=== PATIENT | female | born 1955 | race Two or more races ===

== ENCOUNTER 2017-05-16 16:54 | Emergency (ER) | payer OTHER, MEDICARE ==
[2017-05-16 17:08] VITALS: BP 143/90
[2017-05-16] MEDS ORDERED: predniSONE 20 MG Tab PO ONE (17:29)
[2017-05-16] MEDS ORDERED: Albuterol 0.083% 2.5 MG/3 ML Neb Soln NEB ONE (17:29)
--- NOTE | 2017-05-16 17:35 | EDM.PDOC ---
ED HPI GENERAL MEDICAL PROBLEM - General Chief Complaint: Respiratory Problem Stated Complaint: HX OF ASTHMA/COPD - SOB Time Seen by Provider: 05/16/17 17:02 Source of Information: Reports: Patient, RN Notes Reviewed - History of Present Illness INITIAL COMMENTS - FREE TEXT/NARRATIVE: 61-year-old female comes in with cough, wheezing, shortness of breath. He does have history of COPD. She states her cough is productive of greenish colored phlegm. She believes that she did have chills earlier this afternoon, possible low-grade fever. There has been some nasal and sinus congestion. She denies sore throat. She also feels bilateral ear pressure. - Related Data Allergies Allergy/AdvReac Type Severity Reaction Status Date / Time No Known Allergies Allergy Verified 05/16/17 17:06 Home Meds: Home Meds Albuterol Sulfate [Proair Hfa] 05/16/17 [History] Budesonide/Formoterol [Symbicort 160-4.5 MCG] 05/16/17 [History] Cholecalciferol (Vitamin D3) [Vitamin D] 05/16/17 [History] Doxycycline [Vibramycin] 100 mg PO Q12HR #20 cap 05/16/17 [Rx] Morphine Sulfate [Morphine Sulfate ER] 15 mg PO 05/16/17 [History] Omeprazole 05/16/17 [History] Valsartan [Diovan] 160 mg PO DAILY 05/16/17 [History] Vortioxetine Hydrobromide [Brintellix] 5 mg PO 05/16/17 [History] oxyCODONE HCl/Acetaminophen [oxyCODONE-Acetaminophen 5-325] 05/16/17 [History] Past Medical History HEENT History: Reports: Hard of Hearing Respiratory History: Reports: Asthma, COPD Psychiatric History: Reports: Depression - Past Surgical History HEENT Surgical History: Reports: Other (See Below) Other HEENT Surgeries/Procedures: glaucoma and cataract GI Surgical History: Reports: Cholecystectomy Female Surgical History: Reports: Section Other Musculoskeletal Surgeries/Procedures:: degenerative spine disease Social & Family History - Tobacco Use Smoking Status *Q: Former Smoker Used Tobacco, but Quit: Yes Month Tobacco Last Used: 10 - Recreational Drug Use Recreational Drug Use: No ED ROS GENERAL - Review of Systems Review Of Systems: See Below Constitutional: Reports: Fever, Chills (Possible low-grade) HEENT: Reports: Sinus Problem. Denies: Throat Pain Respiratory: Reports: Shortness of Breath, Wheezing (She does have some nasal and sinus congestion), Cough, Sputum Cardiovascular: Reports: Chest Pain (With coughing) GI/Abdominal: Denies: Abdominal Pain, Vomiting Musculoskeletal: Denies: Shoulder Pain, Arm Pain Skin: Reports: No Symptoms Neurological: Reports: No Symptoms ED EXAM, GENERAL - Physical Exam Exam: See Below General Appearance: Alert, No Apparent Distress Throat/Mouth: Normal Inspection, Normal Oropharynx Neck: Supple, Full Range of Motion, Other (No JVD). No: Lymphadenopathy (L), Lymphadenopathy (R) Respiratory/Chest: No Respiratory Distress, Lungs Clear, Wheezing. No: Rales ( Slight bilateral), Rhonchi Cardiovascular: Regular Rate, Rhythm GI/Abdominal: Soft, Non-Tender Extremities: No: Pedal Edema, Leg Pain Neurological: Alert, Oriented, No Motor/Sensory Deficits Skin Exam: Warm, Dry, Normal Color Course - Vital Signs Last Recorded V/S: Last Vital Signs Temp 96.3 F 05/16/17 17:00 Pulse 75 05/16/17 17:00 Resp 18 05/16/17 17:00 BP 143/90 H 05/16/17 17:00 Pulse Ox 99 05/16/17 17:00 - Orders/Labs/Meds Orders: Active Orders 24 hr Category Date Time Status RT Aerosol Therapy [RC] ASDIRECTED Care 05/16/17 17:29 Active Meds: Medications Discontinued Medications Generic Name Dose Route Start Last Admin Trade Name Freq PRN Reason Stop Dose Admin Albuterol 2.5 mg 05/16/17 17:29 05/16/17 17:38 Proventil Neb Soln NEB 05/16/17 17:30 2.5 mg ONETIME ONE Administration Prednisone 40 mg 05/16/17 17:29 Prednisone PO 05/16/17 17:30 ONETIME ONE Departure - Departure Time of Disposition: 17:30 Disposition: Home, Self-Care 01 Condition: Fair Clinical Impression: COPD exacerbation - Discharge Information Prescriptions: Doxycycline [Vibramycin] 100 mg PO Q12HR #20 cap Referrals: PCP,Not In Area [Primary Care Provider] - Forms: ED Department Discharge Additional Instructions: Doxycycline 100 mg twice daily as prescribed, prednisone as prescribed, continue with your inhalers as previously prescribed, follow-up clinic as needed if symptoms not resolving as expected, return to ED as needed. - My Orders Last 24 Hours: My Active Orders 05/16/17 17:29 RT Aerosol Therapy [RC] ASDIRECTED - Assessment/Plan Last 24 Hours: My Active Orders 05/16/17 17:29 RT Aerosol Therapy [RC] ASDIRECTED
== END 2017-05-16 18:14 | disposition home or self-care (01) ==
LOC: JD.ED 16:54
DX: J44.1 Chronic obstructive pulmonary disease with (acute) exacerbation (principal); F32.9 Major depressive disorder, single episode, unspecified; Z79.899 Other long term (current) drug therapy; Z90.49 Acquired absence of other specified parts of digestive tract; Z87.891 Personal history of nicotine dependence
CPT/HCPCS: 94664; 99284; A9270; 99283

== ENCOUNTER 2017-06-01 14:30 | Emergency (ER) | payer MEDICARE, OTHER ==
[2017-06-01 14:45] VITALS: BP 134/84
== END 2017-06-01 15:25 ==
LOC: JD.ED 14:30
DX: Z53.21 Procedure and treatment not carried out due to patient leaving prior to being seen by health care provider (principal)
CPT/HCPCS: 99283-25

== ENCOUNTER 2017-11-28 08:55 | Day surgery (SDC) | payer MEDICARE, OTHER ==
[~2017-11-28 08:55] MED LIST: Lactated Ringers 1,000 ML IV SCH; Lidocaine 1%/Sod Bicarbonate in NS 8.4% 1 ML Syringe IDERM PRN; Sodium Chloride 0.9% 10 ML Syringe FLUSH PRN
[2017-11-28] MEDS ORDERED: Midazolam 1 MG/ML 2 ML SDV ONE (09:27)
[2017-11-28] MEDS ORDERED: Propofol 200 MG/20 ML SDV ONE (09:27)
[2017-11-28] MEDS ORDERED: fentaNYL 100 MCG/2 ML SDV ONE (09:27)
--- NOTE | 2017-11-28 10:01 | PCM.PREANE ---
Preanesthetic Assessment - Anesthesia/Transfusion/Family Hx Anesthesia History: Prior Anesthesia Without Reaction Family History of Anesthesia Reaction: No Transfusion History: No Prior Transfusion(s) - Review of Systems General: Other (BMI 44, hx hep C) Pulmonary: Shortness of Breath, Other (COPD) Cardiovascular: Other (HTN) Gastrointestinal: Other (GERD with dysphagia) Neurological: Other (chronic back pain) Other: Reports: Depression - Physical Assessment NPO Status Date: 11/27/17 NPO Status Time: 23:00 Pulse: 67 O2 Sat by Pulse Oximetry: 96 Respiratory Rate: 16 Blood Pressure: 119/77 Temperature: 37 C Weight: 96 kg ASA Class: 2 Mental Status: Alert & Oriented x3 Airway Class: Mallampati = 2 Dentition: Reports: Normal Dentition Thyro-Mental Finger Breadths: 3 Mouth Opening Finger Breadths: 3 ROM/Head Extension: Full Lungs: Clear to Auscultation, Normal Respiratory Effort - Allergies Allergies/Adverse Reactions: Allergies Allergy/AdvReac Type Severity Reaction Status Date / Time latex Allergy Cannot Verified 11/27/17 14:27 Remember quetiapine [From Seroquel] Allergy Cannot Verified 11/27/17 14:27 Remember - Blood Blood Available: No Product(s) Available: None - Anesthesia Plan Pre-Op Medication Ordered: None - Acknowledgements Anesthesia Type Planned: MAC Pt an Appropriate Candidate for the Planned Anesthesia: Yes Alternatives and Risks of Anesthesia Discussed w Pt/Guardian: Yes Pt/Guardian Understands and Agrees with Anesthesia Plan: Yes PreAnesthesia Questionnaire HEENT History: Reports: Glaucoma, Hard of Hearing, Impaired Vision, Other (See Below) Other HEENT History: bilateral hearing aids, glasses Cardiovascular History: Reports: Hypertension Respiratory History: Reports: Asthma, COPD, Sleep Apnea Gastrointestinal History: Reports: GERD, Hepatitis, Hiatal Hernia, Other (See Below) Other Gastrointestinal History: dysphagia, hepatitis C positive Genitourinary History: Reports: None [employer] History: Reports: None Musculoskeletal History: Reports: Back Pain, Chronic Neurological History: Reports: CVA Psychiatric History: Reports: Depression Endocrine/Metabolic History: Reports: Obesity/BMI 30+ Hematologic History: Reports: None Immunologic History: Reports: None Oncologic (Cancer) History: Reports: None Dermatologic History: Reports: None - Past Surgical History Head Surgeries/Procedures: Reports: None HEENT Surgical History: Reports: Tonsillectomy Cardiovascular Surgical History: Reports: None Respiratory Surgical History: Reports: None GI Surgical History: Reports: Cholecystectomy, EGD Female Surgical History: Reports: Section Male Surgical History: Reports: None Endocrine Surgical History: Reports: None Neurological Surgical History: Reports: None Musculoskeletal Surgical History: Reports: None Oncologic Surgical History: Reports: None Dermatological Surgical History: Reports: None - SUBSTANCE USE Smoking Status *Q: Former Smoker Second Hand Smoke Exposure: No Recreational Drug Use History: No - HOME MEDS Home Medications: Home Meds Albuterol Sulfate [Proair Hfa] 2 puff INH Q4H PRN 05/16/17 [History] Budesonide/Formoterol [Symbicort 160-4.5 MCG] 2 puff INH BID 05/16/17 [History] Omeprazole 20 mg PO DAILY 05/16/17 [History] Valsartan [Diovan] 160 mg PO DAILY 05/16/17 [History] oxyCODONE HCl/Acetaminophen [oxyCODONE-Acetaminophen 5-325] 1 tab PO Q6H PRN [History] Albuterol [Proventil Neb Soln] 1 dose NEB Q6H 11/27/17 [History] Celecoxib [Celecoxib] 200 mg PO DAILY 11/27/17 [History] Hydrocort/Neomycin/Polymyxin B [Cortisporin Otic Soln] 1 drop EARBOTH QID PRN [History] Pregabalin [Lyrica] 150 mg PO DAILY 11/27/17 [History] Vortioxetine Hydrobromide [Trintellix] 5 mg PO DAILY 11/27/17 [History] - CURRENT (IN HOUSE) MEDS Current Meds: Current Medications Lactated Ringer's (Ringers, Lactated) 1,000 mls @ 125 mls/hr IV ASDIRECTED MACO Stop: 11/28/17 23:00 Lidocaine/Sodium Bicarbonate (Buffered Lidocaine 1% In Ns 8.4%) 0.25 ml IDERM ONETIME PRN PRN Reason: Prior to IV Start Stop: 11/28/17 18:00 Sodium Chloride (Saline Flush) 10 ml FLUSH ASDIRECTED PRN PRN Reason: Keep Vein Open Stop: 11/28/17 18:00 Discontinued Medications Fentanyl (Sublimaze) Confirm Administered Dose 100 mcg .ROUTE .STK-MED ONE Stop: 11/28/17 09:28 Midazolam HCl (Versed 1 Mg/Ml) Confirm Administered Dose 2 mg .ROUTE .STK-MED ONE Stop: 11/28/17 09:28 Propofol (Diprivan 20 Ml) Confirm Administered Dose 200 mg .ROUTE .STK-MED ONE Stop: 11/28/17 09:28
--- NOTE | 2017-11-28 10:40 | PCM48HPAN ---
Post Anesthesia Note - EVALUATION WITHIN 48HRS OF ANESTHETIC Vital Signs in Normal Range: Yes Patient Participated in Evaluation: Yes Respiratory Function Stable: Yes Airway Patent: Yes Cardiovascular Function Stable: Yes Hydration Status Stable: Yes Pain Control Satisfactory: Yes Nausea and Vomiting Control Satisfactory: Yes Mental Status Recovered: Yes Pulse Rate: 78 SaO2: 94 Resp Rate: 12 Temperature: 36.8 C Blood Pressure: 96/65
[2017-11-28 11:54] VITALS: BP 105/69
--- NOTE | 2017-11-29 07:37 | OR ---
DATE OF OPERATION: 11/28/2017 SURGEON: Ashish Burk MD OPERATION PERFORMED: EGD with biopsies. INDICATIONS: This 62-year-old patient has typical GERD symptoms. She has been on a PPI. She is also morbidly obese. In [place], she had treatment for H. pylori. She is considering a consultation for weight loss surgery if that is an option. Her past history is otherwise reviewed. EGD is indicated. DESCRIPTION OF PROCEDURE: The patient was brought to the GI Special Procedure Room. Procedure was done with MAC anesthesia. She was turned to the left lateral decubitus position. Appropriate time-out and consents have been obtained. Scope was advanced through the cricopharyngeus. I see no vocal cord abnormalities. The esophagus was normal. The Z-line was slightly irregular and this would be consistent with LA grade A erosive esophagitis. This was at 35 cm. I do not see a definite hiatal hernia. Scope was advanced into the stomach and on retroflexion, again a hiatal hernia was not appreciated. The cardia, fundus, body, and antrum were all visualized. She has some punctate erosions in the distal antrum. Biopsies were done here for H. pylori. Scope was advanced through the pylorus and down into the third portion of the duodenum, which was completely normal. The scope was then brought back. Pictures were taken and the scope was removed. PREOPERATIVE DIAGNOSIS: Morbid obesity and gastroesophageal reflux disease. ANESTHESIA: MAC. She tolerated the procedure well. RECOMMENDATIONS: We will see her back in 2 weeks to discuss findings. POSTOPERATIVE DIAGNOSIS: ESTIMATED BLOOD LOSS: MMODAL /[id number]
== END 2017-11-28 12:00 | disposition home or self-care (01) ==
LOC: JD.SDS 08:55
PROVIDERS: ATTEND Surgery
DX: K31.89 Other diseases of stomach and duodenum (principal); K25.9 Gastric ulcer, unspecified as acute or chronic, without hemorrhage or perforation; J44.9 Chronic obstructive pulmonary disease, unspecified; F33.42 Major depressive disorder, recurrent, in full remission; I10 Essential (primary) hypertension; Z88.8 Allergy status to other drugs, medicaments and biological substances; Z91.040 Latex allergy status; Z79.899 Other long term (current) drug therapy
CPT/HCPCS: 43239; J2250; J3010; J7120; 00731; 88305; J2704

== ENCOUNTER 2017-11-29 15:14 | Emergency (ER) | payer MEDICARE, OTHER ==
[2017-11-29 15:29] VITALS: BP 143/89
--- NOTE | 2017-11-29 15:47 | EDM.PDOC ---
ED HPI GENERAL MEDICAL PROBLEM - General Chief Complaint: Chest Pain Stated Complaint: CHEST TIGHTNESS Time Seen by Provider: 11/29/17 15:37 Source of Information: Reports: Patient History Limitations: Reports: No Limitations - History of Present Illness INITIAL COMMENTS - FREE TEXT/NARRATIVE: 62-year-old female presents to the ED with diffuse central chest pain and the pain rating up into her left shoulder. Of note patient had an EGD done yesterday morning for difficulties swallowing. This is her third EGD. She continues to feel a foreign body sensation in her throat and is clearing her throat excessively. She also has developed increased some pain particular a distal esophagus area with swallowing. She feels somewhat short of breath. No position is comfortable last night and she was forced to sit in an easy chair. Bowels move normally after the procedure yesterday. She's been taking mostly water and fluids orally without much pain. He can much in the way of solids. Pain is worse by deep breathing tonight pleuritic component to the hermann Seems to radiate up to her left shoulder and she's aware of pain between her shoulder blades in her back as well. Pain in the nape of her neck. 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 She has associated nausea but she has not vomited. She has a known hiatal hernia. She believes biopsies were obtained from the stomach yesterday not from the esophagus which she's not sure if they could've at the esophageal gastric junction. She denies any blood in her stool. Denies any abdominal pain. Note her procedure was carried out by Dr. Burk apparently the utility spray operator visiting I presume from [place]. Suture was carried out in our hospital however due to her obesity she was too high risk for clinic procedure. Onset: Sudden (Patient has had central chest pain since her biopsy and EGD were completed yesterday around noon.) Onset Date: 11/29/17 Duration: Hour(s): Location: Reports: Chest Quality: Reports: Ache, Burning, Sharp, Stabbing. Denies: Same as Previous Episode Severity: Moderate Improves with: Reports: None (A 7 out of 10.) Worsens with: Reports: Other (Deep breathing.) Context: Reports: Other (Pain started after EGD done yesterday morning.). Denies: Activity, Exercise, Lifting, Sick Contact, Trauma Associated Symptoms: Reports: Chest Pain, Cough, cough w sputum, Loss of Appetite, Malaise, Shortness of Breath. 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) Chest Pain Score (Numeric/FACES): 9 - Related Data Allergies Allergy/AdvReac Type Severity Reaction Status Date / Time latex Allergy Cannot Verified 11/27/17 14:27 Remember quetiapine [From Seroquel] Allergy Cannot Verified 11/27/17 14:27 Remember Home Meds: Home Meds Albuterol Sulfate [Proair Hfa] 2 puff INH Q4H PRN 05/16/17 [History] Budesonide/Formoterol [Symbicort 160-4.5 MCG] 2 puff INH BID 05/16/17 [History] Omeprazole 20 mg PO DAILY 05/16/17 [History] Valsartan [Diovan] 160 mg PO DAILY 05/16/17 [History] oxyCODONE HCl/Acetaminophen [oxyCODONE-Acetaminophen 5-325] 1 tab PO Q6H PRN [History] Albuterol [Proventil Neb Soln] 1 dose NEB Q6H 11/27/17 [History] Hydrocort/Neomycin/Polymyxin B [Cortisporin Otic Soln] 1 drop EARBOTH QID PRN [History] Pregabalin [Lyrica] 150 mg PO DAILY 11/27/17 [History] Vortioxetine Hydrobromide [Trintellix] 5 mg PO DAILY 11/27/17 [History] Ondansetron [Zofran] 4 mg BUCCAL Q6H PRN #5 tab 11/29/17 [Rx] Sucralfate 1 gm PO QIDACANDBED #12 ml 11/29/17 [Rx] oxyCODONE HCl/Acetaminophen [Percocet 5-325 mg Tablet] 1 - 2 each PO Q4H PRN # 12 tablet 03/09/18 [Rx] Past Medical History HEENT History: Reports: Glaucoma, Hard of Hearing, Impaired Vision, Other (See Below) Other HEENT History: bilateral hearing aids, glasses Cardiovascular History: Reports: Hypertension Respiratory History: Reports: Asthma, COPD, Sleep Apnea Gastrointestinal History: Reports: GERD, Hepatitis, Hiatal Hernia, Other (See Below) Other Gastrointestinal History: dysphagia, hepatitis C positive(dormint) Genitourinary History: Reports: None 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 Musculoskeletal History: Reports: Back Pain, Chronic Neurological History: Reports: CVA Psychiatric History: Reports: Depression Endocrine/Metabolic History: Reports: Obesity/BMI 30+ Hematologic History: Reports: None Immunologic History: Reports: None Oncologic (Cancer) History: Reports: None Dermatologic History: Reports: None - Past Surgical History Head Surgeries/Procedures: Reports: None HEENT Surgical History: Reports: Tonsillectomy Cardiovascular Surgical History: Reports: None Respiratory Surgical History: Reports: None GI Surgical History: Reports: Cholecystectomy, EGD Female Surgical History: Reports: Section Endocrine Surgical History: Reports: None Neurological Surgical History: Reports: None Musculoskeletal Surgical History: Reports: None Oncologic Surgical History: Reports: None Dermatological Surgical History: Reports: None Social & Family History - Family History Cardiac: Reports: [place] Endocrine/Metabolic: Reports: Diabetes, type II Oncologic: Reports: Breast, Cervix, Other (See Below) Other Oncologic Family History: testicular - Tobacco Use Smoking Status *Q: Former Smoker Used Tobacco, but Quit: Yes Month Tobacco Last Used: 1999 Second Hand Smoke Exposure: No - Caffeine Use Caffeine Use: Reports: Coffee - Recreational Drug Use Recreational Drug Use: No - Living Situation & Occupation Living situation: Reports: Occupation: Unemployed [facility] GENER[facility] - Review of Systems Review Of Systems: See Below Constitutional: Reports: Weakness, Fatigue, Decreased Appetite (From not sleeping last night.). Denies: Fever, Chills, Malaise HEENT: Reports: No Symptoms Respiratory: Reports: Shortness of Breath, Pleuritic Chest Pain (Pain left upper anterior chest and shoulder area is strongly pleuritic in nature), Cough ( Nonproductive cough. More forceful forcefully voice clearing.), Other Cardiovascular: Reports: Chest Pain, Dyspnea on Exertion. Denies: Blood Pressure Problem (See history of present illness), Claudication, Edema, Lightheadedness, Orthopnea, Palpitations Endocrine: Reports: Fatigue GI/Abdominal: Reports: No Symptoms : Reports: No Symptoms Musculoskeletal: Reports: No Symptoms Skin: Reports: No Symptoms Neurological: Reports: No Symptoms Psychiatric: Reports: No Symptoms Hematologic/Lymphatic: Reports: No Symptoms ED EXAM, GENERAL - Physical Exam Exam: See Below Exam Limited By: No Limitations General Appearance: Alert, Anxious (She is very anxious.), Moderate Distress, Other Eye Exam: Bilateral Eye: Normal Fundi Throat/Mouth: Normal Inspection, Normal Lips, Normal Teeth, Normal Gums Head: Atraumatic, Normocephalic Neck: Normal Inspection, Supple, Non-Tender, Full Range of Motion, Other (No crepitus in the supraclavicular processes bilaterally. Patient is very tender to palpation throughout the upper belly of the trapezius on the left side as well as the supraspinatus tendon area. This appears to be the source of her shoulder pain.). No: Lymphadenopathy (L), Lymphadenopathy (R) Respiratory/Chest: No Respiratory Distress, Decreased Breath Sounds (Breath sounds are diminished at both lung bases due to body habitus.). No: Respiratory Distress, Rales, Rhonchi, Wheezing, Pleural Rub, Accessory Muscle Use, Retractions Cardiovascular: Normal Peripheral Pulses, Regular Rate, Rhythm, No Edema, No Gallop, No Murmur Peripheral Pulses: 2+: Posterior Tibial (L), Posterior Tibial (R), Dorsalis Pedis (L), Dorsalis Pedis (R) GI/Abdominal: Normal Bowel Sounds, Soft, Non-Tender, No Organomegaly, No Abnormal Bruit (The abdomen is firm to palpation. Moderately obese. No organomegaly or masses were palpable.), No Mass, Pelvis Stable, Other Back Exam: Normal Inspection, Full Range of Motion. No: CVA Tenderness (L), CVA Tenderness (R) Extremities: Normal Inspection, Normal Range of Motion, Non-Tender, No Pedal Edema Neurological: Alert, Oriented, CN II-XII Intact, Normal Cognition, Normal Gait Psychiatric: Anxious Skin Exam: Warm, Dry, Intact, Normal Color, No Rash EKG INTERPRETATION EKG Date: 11/29/17 Time: 15:30 Rhythm: NSR Rate (Beats/Min): 76 Orwell: LAD-Left Orwell Deviation (Left axis deviation of -33.) P-Wave: Present QRS: Other (She has very poor initial R wave progression in the precordial leads. There is decreased amplitude in the precordial leads. There is a near Q- wave in lead 3 and aVF suggestive of possible old inferior wall myocardial infarction.) ST-T: Normal QT: Prolonged Course - Vital Signs Last Recorded V/S: Last Vital Signs Temp 36.7 C 11/29/17 15:28 Pulse 87 11/29/17 15:28 Resp 19 11/29/17 15:28 BP 143/89 H 11/29/17 15:28 Pulse Ox 98 11/29/17 15:28 - Orders/Labs/Meds Orders: Active Orders 24 hr Category Date Time Status EKG Documentation Completion [RC] STAT Care 11/29/17 15:47 Active Sodium Chloride 0.9% [Normal Saline] 1,000 ml Med 11/29/17 16:00 Active IV ASDIRECTED Medication Orders Sodium Chloride (Normal Saline) 1,000 mls @ 150 mls/hr IV ASDIRECTED MACO Last Admin: 11/29/17 15:55 Dose: 150 mls/hr Labs: Laboratory Tests 11/29/17 11/29/17 11/29/17 Range/Units 15:58 15:58 15:58 WBC 3.37 L (3.98-10.04) K/mm3 RBC 4.49 (3.98-5.22) M/mm3 Hgb 13.3 (11.2-15.7) gm/L Hct 39.5 (34.1-44.9) % MCV 88.0 (79.4-94.8) fl MCH 29.6 (25.6-32.2) pg MCHC 33.7 (32.2-35.5) g/dl RDW Std Deviation 42.2 (36.4-46.3) fL Plt Count 215 (182-369) K/mm3 MPV 9.5 (9.4-12.3) fl Neutrophils % (Manual) 42 (40-60) % Band Neutrophils % 0 (0-10) % Lymphocytes % (Manual) 49 H (20-40) % Atypical Lymphs % 0 % Monocytes % (Manual) 4 (2-10) % Eosinophils % (Manual) 3 (0.7-5.8) % Basophils % (Manual) 2 H (0.1-1.2) Platelet Estimate Adequate RBC Morph Comment Normal Sodium 139 (136-145) mEq/L Potassium 3.9 (3.5-5.1) mEq/L Chloride 104 (98-107) mEq/L Carbon Dioxide 26 (21-32) mEq/L Anion Gap 12.9 (5-15) BUN 14 (7-18) mg/dL Creatinine 0.7 (0.55-1.02) mg/dL Est Cr Clr Drug Dosing 64.49 mL/min Estimated GFR (MDRD) > 60 (>60) mL/min BUN/Creatinine Ratio 20.0 H (14-18) Glucose 96 (74-106) mg/dL Calcium 9.4 (8.5-10.1) mg/dL Total Bilirubin 0.5 (0.2-1.0) mg/dL AST 56 H (15-37) U/L ALT 54 (14-59) U/L Alkaline Phosphatase 92 (46-116) U/L CK-MB (CK-2) < 0.5 (0-3.6) ng/ml Troponin I < 0.017 (0.00-0.056) ng/mL NT-Pro-B Natriuret Pep 144 H (0-125) pg/mL Total Protein 7.9 (6.4-8.2) g/dl Albumin 3.9 (3.4-5.0) g/dl Globulin 4.0 gm/dL Albumin/Globulin Ratio 1.0 (1-2) Lipase 52 L (73-393) U/L Meds: Medications Generic Name Dose Route Start Last Admin Trade Name Freq PRN Reason Stop Dose Admin Sodium Chloride 1,000 mls @ 150 mls/hr 11/29/17 16:00 11/29/17 15:55 Normal Saline IV 150 mls/hr ASDIRECTED MACO Administration Discontinued Medications Generic Name Dose Route Start Last Admin Trade Name Freq PRN Reason Stop Dose Admin Hydromorphone HCl 0.5 mg 11/29/17 15:50 11/29/17 15:55 Dilaudid IVPUSH 11/29/17 15:51 0.5 mg ONETIME ONE Administration Hydromorphone HCl 0.5 mg 11/29/17 17:14 11/29/17 17:32 Dilaudid IVPUSH 11/29/17 17:15 0.5 mg ONETIME ONE Administration Ondansetron HCl 4 mg 11/29/17 15:50 11/29/17 15:55 Zofran IVPUSH 11/29/17 15:51 4 mg ONETIME ONE Administration Sucralfate 1 gm 11/29/17 17:14 11/29/17 17:32 Carafate PO 11/29/17 17:15 1 gm ONETIME ONE Administration - Radiology Interpretation Free Text/Narrative:: 62-year-old female presents to the ED with central chest pain after having an EGD done yesterday and those biopsies. Exactly where the biopsies were taken from is unclear. She states she had pain when she woke up from the anesthesia and this is progressed. She has pain rating up into her left shoulder which is pleuritic in nature and she feels somewhat short of breath. Pain is also felt between her shoulder blades. She does have some component of odynophagia with swallowing fluids. She also has forceful voice clearing repetitively when she was advised to try and curtail. Concern is whether or not she could've suffered a perforation of the esophagus or a pneumothorax as part of her surgical procedure. She will have an initial chest x-ray done supine. I suspect she may need CT of the chest as well. Routine labs including cardiac markers and BNP will be done. IV will be normal saline at 150 mils per hour. Will give Dilaudid 0.5 mg IV for pain relief and Zofran 4 mg IV for nausea relief. - Re-Assessments/Exams Free Text/Narrative Re-Assessment/Exam: 11/29/17 16:58 chest x-ray reveals poor inspirational view. Left hemidiaphragm is also elevated compressing the left lung field. Cardiac silhouette is upper limits of normal. There appears to be very mild diffuse vascular congestion. Labs are back. Total white count is 3.37 with 42% neutrophils no bands reported and 49% lymphocytes. I.e. mild right shift. Hemoglobin is 13.3 with hematocrit 39.5. Platelet count is normal at 215,000. Sodium is 139 with a potassium of 3.9. Chloride 104 with a bicarbonate 26. And a gap is normal at 12.9. BUNs 14 with a grading of 0.7. Glucose is 96. B bilirubin is 0.5 AST is mildly elevated at 56 ALT is 54. CK-MB fraction is less than 0.5 troponin I is less than 0.017. BNP is normal at 144. Lipase normal at 52. Essentially labs are normal. Referred pain to the left shoulder is likely still due to irritation of the esophagus from biopsy done yesterday. There is no sign of perforation of the esophagus or evidence of pneumothorax post procedure. 11/29/17 17:16 plan I'm going to give her sucralfate 1 g suspension 4 times a day for the next 3 days starting now. I will also give her another 0.5 mg of Dilaudid IV for left shoulder pain which is strongly musculoskeletal in origin. I'm going to discharge her on Zofran 4 mg sublingually every 6 hours when necessary 5 tablets. Percocet 5/3/25 milligram tablets one or 2 every 4-6 hours no safe for pain relief 12 tablets. Sucralfate 1 g suspension 4 times a day for the next 3 days. Follow up with personal care physician early next week if not completely back to normal. Departure - Departure Time of Disposition: 17:35 Disposition: Home, Self-Care 01 Condition: Fair Clinical Impression: Esophagitis Shoulder pain, acute Qualifiers: Laterality: left Qualified Code(s): M25.512 - Pain in left shoulder Prescriptions: Ondansetron [Zofran] 4 mg BUCCAL Q6H PRN #5 tab PRN Reason: nausea or vomiting oxyCODONE HCl/Acetaminophen [Percocet 5-325 mg Tablet] 1 - 2 each PO Q4H PRN # 12 tablet PRN Reason: pain relief. Sucralfate 1 gm PO QIDACANDBED #12 ml Instructions: Shoulder Pain, Esophagitis Referrals: Martin Walker MD [Primary Care Provider] - Forms: ED Department Discharge Additional Instructions: Evaluation in the emergency room today in regards to development of persistent central chest pain after having EGD done yesterday. Apparently a biopsy was performed either in the stomach or at the junction of the food pipe and stomach. At any rate she continue to have discomfort and central chest discomfort since the procedure was carried out. Also pain in the left shoulder which appears to be musculoskeletal in origin I very tender throughout the trapezius and supraspinatus aspect of the left shoulder. Sedations done through the ED show no signs of infection or perforation of the esophagus. There is no sign of heart related illness with all of the markers being normal. CXR was also normal. It therefore appears that you still have a significant inflammation of your esophagus which we call esophagitis or hiatal hernia is stuck at the lower food pipe junction in the diaphragm causing your current pain. I would suggest use of sucralfate suspension 1 g half hour before meals and at bedtime for the next 3 days. Zofran 4 mg under the tongue every 6 hours needed for nausea relief. Percocet tabs 5/325 milligrams one tablet every 4-6 hours needed for pain relief. Follow-up with personal care physician if not completely back to normal by Saturday next week. Continue all other medications as previously prescribed. - My Orders Last 24 Hours: My Active Orders 11/29/17 15:47 EKG Documentation Completion [RC] STAT 11/29/17 16:00 Sodium Chloride 0.9% [Normal Saline] 1,000 ml IV ASDIRECTED - Assessment/Plan Last 24 Hours: My Active Orders 11/29/17 15:47 EKG Documentation Completion [RC] STAT 11/29/17 16:00 Sodium Chloride 0.9% [Normal Saline] 1,000 ml IV ASDIRECTED
[2017-11-29] MEDS ORDERED: Ondansetron 4 MG/2 ML SDV IVPUSH ONE (15:50)
[2017-11-29] MEDS ORDERED: HYDROmorphone 0.5 MG/0.5 ML SYRINGE IVPUSH ONE ×2 (15:50→17:14)
[2017-11-29] MEDS ORDERED: Sodium Chloride 0.9% 1,000 ML IV SCH (16:00)
[2017-11-29] MEDS ORDERED: Sucralfate Suspension 1 GM/10 ML Cup PO ONE (17:14)
--- NOTE | 2017-11-29 17:38 | CR ---
Chest: Portable view of the chest was obtained. Comparison: No previous chest x-ray. Heart size is within normal limits for portable technique. Mild tortuosity of the thoracic aorta is seen. Lungs are clear. Bony structures are grossly intact. Surgical clips are noted from prior cholecystectomy. Impression: 1. Nothing acute is seen on portable chest x-ray. Diagnostic code #2
== END 2017-11-29 17:45 | disposition home or self-care (01) ==
LOC: JD.ED 15:14
DX: K21.0 Gastro-esophageal reflux disease with esophagitis (principal); M25.512 Pain in left shoulder; I10 Essential (primary) hypertension; J44.9 Chronic obstructive pulmonary disease, unspecified; F32.9 Major depressive disorder, single episode, unspecified; Z87.891 Personal history of nicotine dependence; Z79.899 Other long term (current) drug therapy; Z88.8 Allergy status to other drugs, medicaments and biological substances; Z91.040 Latex allergy status
CPT/HCPCS: 36415; 71045; 80053; 82553; 83690; 83880; 84484; 85025; 93005; 96361; 96374; 96375; 96376; 99285; A9270; J1170; J2405; J7040; 93010; 99284-25

== ENCOUNTER 2018-01-10 16:59 | Emergency (ER) | payer MEDICARE, OTHER ==
[2018-01-10 17:17] VITALS: BP 143/107
[2018-01-10] MEDS ORDERED: Sodium Chloride 0.9% 10 ML Syringe FLUSH PRN (18:20)
[2018-01-10] MEDS ORDERED: Sodium Chloride 0.9% 1,000 ML IV ONE (18:20)
[2018-01-10] MEDS ORDERED: Dicyclomine 10 MG Cap PO ONE (18:36)
[2018-01-10] MEDS ORDERED: HYDROmorphone 0.5 MG/0.5 ML SYRINGE IVPUSH ONE (18:36)
[2018-01-10] MEDS ORDERED: Ondansetron 4 MG/2 ML SDV IVPUSH ONE (18:36)
--- NOTE | 2018-01-10 18:40 | EDM.PDOC ---
ED HPI GENERAL MEDICAL PROBLEM - General Chief Complaint: Abdominal Pain Stated Complaint: ABDOMINAL PAIN Time Seen by Provider: 01/10/18 18:10 Source of Information: Reports: Patient History Limitations: Reports: No Limitations - History of Present Illness INITIAL COMMENTS - FREE TEXT/NARRATIVE: Patient is a 62-year-old female who presents to the ED complaining of abdominal pain with nausea and vomiting. Patient states she awoke from a nap today at about 3:15 pm with pain to the left side of her abdomen that shoots from her low back into her groin. She does have a history of diverticulitis and also kidney stones. States she has been hot and cold with no documented fever. She's had diarrhea off and on with hard formed stools. She did see her PCP this past Saturday and was told to continue to monitor. There's been no blood in her stool. No pain with urination. She's also noted that she has soiled her underwear with little stool with out knowing. She does have a history constipation and chronic opioid use. She's had a poor appetite but drinking okay. She did recently see her pain specialist yesterday and had refill of her chronic pain medications. Left Abdomen Pain Score (Numeric/FACES): 10 - Related Data Allergies Allergy/AdvReac Type Severity Reaction Status Date / Time latex Allergy Cannot Verified 11/27/17 14:27 Remember quetiapine [From Seroquel] Allergy Cannot Verified 11/27/17 14:27 Remember Home Meds: Home Meds Albuterol Sulfate [Proair Hfa] 2 puff INH Q4H PRN 05/16/17 [History] Budesonide/Formoterol [Symbicort 160-4.5 MCG] 2 puff INH BID 05/16/17 [History] Valsartan [Diovan] 160 mg PO DAILY 05/16/17 [History] oxyCODONE HCl/Acetaminophen [oxyCODONE-Acetaminophen 5-325] 1 tab PO Q6H PRN [History] Albuterol [Proventil Neb Soln] 1 dose NEB Q6H 11/27/17 [History] Hydrocort/Neomycin/Polymyxin B [Cortisporin Otic Soln] 1 drop EARBOTH QID PRN [History] Pregabalin [Lyrica] 150 mg PO DAILY 11/27/17 [History] Vortioxetine Hydrobromide [Trintellix] 10 mg PO DAILY 11/27/17 [History] Naproxen 500 mg PO BID #20 tablet 01/10/18 [Rx] Ondansetron [Zofran ODT] 4 mg PO Q6H PRN #12 tab.dis 01/10/18 [Rx] Tamsulosin HCl [Flomax] 0.4 mg PO QAM #10 cap.er.24h 01/10/18 [Rx] Past Medical History HEENT History: Reports: Glaucoma, Hard of Hearing, Impaired Vision, Other (See Below) Other HEENT History: bilateral hearing aids, glasses Cardiovascular History: Reports: Hypertension Respiratory History: Reports: Asthma, COPD, Sleep Apnea Gastrointestinal History: Reports: GERD, Hepatitis, Hiatal Hernia, Other (See Below) Other Gastrointestinal History: dysphagia, hepatitis C positive(dormint) Genitourinary History: Reports: None SHORT STORY WRITER History: Reports: None Musculoskeletal History: Reports: Back Pain, Chronic Neurological History: Reports: CVA Psychiatric History: Reports: Depression Endocrine/Metabolic History: Reports: Obesity/BMI 30+ Hematologic History: Reports: None Immunologic History: Reports: None Oncologic (Cancer) History: Reports: None Dermatologic History: Reports: None - Past Surgical History Head Surgeries/Procedures: Reports: None HEENT Surgical History: Reports: Tonsillectomy Cardiovascular Surgical History: Reports: None Respiratory Surgical History: Reports: None GI Surgical History: Reports: Cholecystectomy, EGD Female Surgical History: Reports: Section Endocrine Surgical History: Reports: None Neurological Surgical History: Reports: None Musculoskeletal Surgical History: Reports: None Oncologic Surgical History: Reports: None Dermatological Surgical History: Reports: None Social & Family History - Family History Cardiac: Reports: [place] Endocrine/Metabolic: Reports: Diabetes, type II Oncologic: Reports: Breast, Cervix, Other (See Below) Other Oncologic Family History: testicular - Tobacco Use Smoking Status *Q: Never Smoker Used Tobacco, but Quit: Yes Month/Year Tobacco Last Used: 1999 Second Hand Smoke Exposure: No - Caffeine Use Caffeine Use: Reports: Coffee, Tea - Recreational Drug Use Recreational Drug Use: No - Living Situation & Occupation Living situation: Reports: Occupation: Unemployed ED ROS GENERAL - Review of Systems Review Of Systems: See Below Constitutional: Reports: Fever, Chills, Malaise, Decreased Appetite HEENT: Reports: No Symptoms Respiratory: Reports: No Symptoms Cardiovascular: Reports: No Symptoms GI/Abdominal: Reports: Abdominal Pain, Constipation, Diarrhea, Decreased Appetite, Nausea, Vomiting. Denies: Black Stool, Bloody Stool, Hematemesis, Hematochezia, Melena : Reports: No Symptoms Musculoskeletal: Reports: Back Pain (Low back pain) Skin: Reports: No Symptoms Neurological: Reports: No Symptoms ED EXAM, GI/ABD - Physical Exam Exam: See Below Exam Limited By: No Limitations General Appearance: Alert, WD/WN, Moderate Distress Ears: Hearing Grossly Normal Nose: Normal Inspection Throat/Mouth: Normal Voice, No Airway Compromise Neck: Normal Inspection, Supple Respiratory/Chest: No Respiratory Distress, Lungs Clear, Normal Breath Sounds, No Accessory Muscle Use, Chest Non-Tender Cardiovascular: Normal Peripheral Pulses, Regular Rate, Rhythm GI/Abdominal Exam: No Organomegaly, No Distention, Tender (Throughout), Abnormal Bowel Sounds (Hyperactive) Back Exam: CVA Tenderness (L), Other (Left lower lobe back pain). No: CVA Tenderness (R) Neurological: Alert, Oriented, CN II-XII Intact, Normal Cognition, No Motor/ Sensory Deficits Psychiatric: Normal Affect, Normal Mood Skin Exam: Warm, Dry, Intact, Normal Color Course - Vital Signs Last Recorded V/S: Last Vital Signs Temp 99.7 F 01/10/18 17:14 Pulse 87 01/10/18 17:14 Resp 20 01/10/18 17:14 BP 143/107 H 01/10/18 17:14 Pulse Ox 98 01/10/18 17:14 - Orders/Labs/Meds Labs: Laboratory Tests 01/10/18 01/10/18 01/10/18 Range/Units 18:26 18:26 18:30 WBC 5.68 (3.98-10.04) K/mm3 RBC 4.38 (3.98-5.22) M/mm3 Hgb 13.1 (11.2-15.7) gm/L Hct 38.4 (34.1-44.9) % MCV 87.7 (79.4-94.8) fl MCH 29.9 (25.6-32.2) pg MCHC 34.1 (32.2-35.5) g/dl RDW Std Deviation 41.0 (36.4-46.3) fL Plt Count 186 (182-369) K/mm3 MPV 10.3 (9.4-12.3) fl Neutrophils % (Manual) 53 (40-60) % Band Neutrophils % 1 (0-10) % Lymphocytes % (Manual) 37 (20-40) % Atypical Lymphs % 0 % Monocytes % (Manual) 9 (2-10) % Eosinophils % (Manual) 0 L (0.7-5.8) % Basophils % (Manual) 0 L (0.1-1.2) Platelet Estimate Adequate RBC Morph Comment Normal Sodium (136-145) mEq/L Potassium (3.5-5.1) mEq/L Chloride (98-107) mEq/L Carbon Dioxide (21-32) mEq/L Anion Gap (5-15) BUN (7-18) mg/dL Creatinine (0.55-1.02) mg/dL Est Cr Clr Drug Dosing mL/min Estimated GFR (MDRD) (>60) mL/min BUN/Creatinine Ratio (14-18) Glucose (74-106) mg/dL Calcium (8.5-10.1) mg/dL Total Bilirubin (0.2-1.0) mg/dL AST (15-37) U/L ALT (14-59) U/L Alkaline Phosphatase (46-116) U/L C-Reactive Protein (<1.0) mg/dL Total Protein (6.4-8.2) g/dl Albumin (3.4-5.0) g/dl Globulin gm/dL Albumin/Globulin Ratio (1-2) Lipase (73-393) U/L TSH 3rd Generation (0.358-3.74) uIU/mL Urine Color Yellow (Yellow) Urine Appearance Clear (Clear) Urine pH 6.5 (5.0-8.0) Ur Specific [place] > or = 1.030 (1.005-1.030) Urine Protein 1+ H (Negative) Urine Glucose (UA) Negative (Negative) Urine Ketones Negative (Negative) Urine Occult Blood 3+ H (Negative) Urine Nitrite Negative (Negative) Urine Bilirubin Negative (Negative) Urine Urobilinogen 0.2 (0.2-1.0) Ur Leukocyte Esterase Negative (Negative) Urine RBC 50-75 H (0-5) /hpf Urine WBC 0-5 (0-5) /hpf Ur Epithelial Cells 0-5 (0-5) /hpf Urine Bacteria Not seen (FEW) /hpf Urine Mucus Not seen (FEW) /hpf Urine Opiates Screen Presumptive positive H (NEGATIVE) Ur Buprenorphine Scrn Negative (NEGATIVE) Ur Oxycodone Screen Presumptive positive H (NEGATIVE) Urine Methadone Screen Negative (NEGATIVE) Ur Propoxyphene Screen Negative (NEGATIVE) Ur Barbiturates Screen Negative (NEGATIVE) Ur Tricyclics Screen Negative (NEGATIVE) Ur Phencyclidine Scrn Negative (NEGATIVE) Ur Amphetamine Screen Negative (NEGATIVE) U Methamphetamines Scrn Negative (NEGATIVE) U Benzodiazepines Scrn Negative (NEGATIVE) U Cocaine Metab Screen Negative (NEGATIVE) U Marijuana (THC) Screen Negative (NEGATIVE) 01/10/18 Range/Units 18:30 WBC (3.98-10.04) K/mm3 RBC (3.98-5.22) M/mm3 Hgb (11.2-15.7) gm/L Hct (34.1-44.9) % MCV (79.4-94.8) fl MCH (25.6-32.2) pg MCHC (32.2-35.5) g/dl RDW Std Deviation (36.4-46.3) fL Plt Count (182-369) K/mm3 MPV (9.4-12.3) fl Neutrophils % (Manual) (40-60) % Band Neutrophils % (0-10) % Lymphocytes % (Manual) (20-40) % Atypical Lymphs % % Monocytes % (Manual) (2-10) % Eosinophils % (Manual) (0.7-5.8) % Basophils % (Manual) (0.1-1.2) Platelet Estimate RBC Morph Comment Sodium 138 (136-145) mEq/L Potassium 4.5 (3.5-5.1) mEq/L Chloride 103 (98-107) mEq/L Carbon Dioxide 25 (21-32) mEq/L Anion Gap 14.5 (5-15) BUN 21 H (7-18) mg/dL Creatinine 0.8 (0.55-1.02) mg/dL Est Cr Clr Drug Dosing 53.71 mL/min Estimated GFR (MDRD) > 60 (>60) mL/min BUN/Creatinine Ratio 26.3 H (14-18) Glucose 149 H (74-106) mg/dL Calcium 9.5 (8.5-10.1) mg/dL Total Bilirubin 0.6 (0.2-1.0) mg/dL AST 30 (15-37) U/L ALT 40 (14-59) U/L Alkaline Phosphatase 85 (46-116) U/L C-Reactive Protein 3.5 H* (<1.0) mg/dL Total Protein 7.8 (6.4-8.2) g/dl Albumin 4.0 (3.4-5.0) g/dl Globulin 3.8 gm/dL Albumin/Globulin Ratio 1.1 (1-2) Lipase 46 L (73-393) U/L TSH 3rd Generation 0.857 (0.358-3.74) uIU/mL Urine Color (Yellow) Urine Appearance (Clear) Urine pH (5.0-8.0) Ur Specific [place] (1.005-1.030) Urine Protein (Negative) Urine Glucose (UA) (Negative) Urine Ketones (Negative) Urine Occult Blood (Negative) Urine Nitrite (Negative) Urine Bilirubin (Negative) Urine Urobilinogen (0.2-1.0) Ur Leukocyte Esterase (Negative) Urine RBC (0-5) /hpf Urine WBC (0-5) /hpf Ur Epithelial Cells (0-5) /hpf Urine Bacteria (FEW) /hpf Urine Mucus (FEW) /hpf Urine Opiates Screen (NEGATIVE) Ur Buprenorphine Scrn (NEGATIVE) Ur Oxycodone Screen (NEGATIVE) Urine Methadone Screen (NEGATIVE) Ur Propoxyphene Screen (NEGATIVE) Ur Barbiturates Screen (NEGATIVE) Ur Tricyclics Screen (NEGATIVE) Ur Phencyclidine Scrn (NEGATIVE) Ur Amphetamine Screen (NEGATIVE) U Methamphetamines Scrn (NEGATIVE) U Benzodiazepines Scrn (NEGATIVE) U Cocaine Metab Screen (NEGATIVE) U Marijuana (THC) Screen (NEGATIVE) Meds: Medications Discontinued Medications Generic Name Dose Route Start Last Admin Trade Name Freq PRN Reason Stop Dose Admin Dicyclomine HCl 20 mg 01/10/18 18:36 01/10/18 18:48 Bentyl PO 01/10/18 18:37 20 mg ONETIME ONE Administration Hydromorphone HCl 0.5 mg 01/10/18 18:36 01/10/18 18:47 Dilaudid IVPUSH 01/10/18 18:37 0.5 mg ONETIME ONE Administration Sodium Chloride 1,000 mls @ 250 mls/hr 01/10/18 18:20 01/10/18 18:32 Normal Saline IV 01/10/18 22:19 250 mls/hr ONETIME ONE Administration Ketorolac Tromethamine 30 mg 01/10/18 19:28 01/10/18 19:37 Toradol IVPUSH 01/10/18 19:29 30 mg ONETIME ONE Administration Ondansetron HCl 4 mg 01/10/18 18:36 01/10/18 18:44 Zofran IVPUSH 01/10/18 18:37 4 mg ONETIME ONE Administration Sodium Chloride 10 ml 01/10/18 18:20 01/10/18 18:33 Saline Flush FLUSH 10 ml ASDIRECTED PRN Administration Keep Vein Open Tamsulosin HCl 0.4 mg 01/10/18 20:30 01/10/18 20:40 Flomax PO 01/10/18 20:31 0.4 mg ONETIME ONE Administration - Re-Assessments/Exams Free Text/Narrative Re-Assessment/Exam: IV established with normal saline, Dilaudid 0.5 mg IVP, Zofran 4 mg IVP, and Bentyl 20 mg by mouth when able. Initial labs and studies include CBC, chem 14, CRP, urine drug tox, lipase, TSH , UA, and 2 view of the abdomen flat and upright. 01/10/18 19:17 x-ray of the abdomen flat and upright impression: 4 mm calcification next to the spinal left side. Difficult to exclude an obstructive ureteral stone in please correlate with patient's symptoms. Other incidental findings. Patient is presenting as that she's having a kidney stone. Ordered CT the abdomen and pelvis renal stone protocol. Labs reviewed: CBC essentially normal. Sodium 138, potassium 4.5, creatinine 0.8 , glucose 149, CRP 3.5, TSH 0 point a 7, lipase 46, UA protein one plus/3+ occult blood/urine rbc's 50-75, urine drug tox positive for opiates and oxycodone. CT of the abdomen and pelvis impression: 6 mm obstruction stone at the UPJ on the left side. Small 1-2 is millimeter stone within the lower right kidney. Other incidental findings as noted above. Ordered Flomax 0.4 mg by mouth. 2031 per nursing staff patient's pain is significantly improved with the Toradol. We'll discharge patient home with instructions as documented. Departure - Departure Time of Disposition: 20:33 Disposition: Home, Self-Care 01 Condition: Good Clinical Impression: Kidney stone on left side - Discharge Information Prescriptions: Naproxen 500 mg PO BID #20 tablet Ondansetron [Zofran ODT] 4 mg PO Q6H PRN #12 tab.dis PRN Reason: Nausea/Vomiting Tamsulosin HCl [Flomax] 0.4 mg PO QAM #10 cap.er.24h Instructions: Kidney Stones, Renal Colic, [id number], Nausea and Vomiting, Adult, [id number], Pain Medicine Instructions, [id number] Referrals: Martin Walker MD [Primary Care Provider] - Forms: ED Department Discharge Additional Instructions: You have a 6 mm obstruction stone at the UPJ on the left side. Small 1-2 mm stone within the lower right kidney. Will have you take Flomax 0.4 mg every day until completed. For severe pain take your your home pain medications as prescribed. In addition I will add naproxen 500 mg twice a day. For nausea may take Zofran 4 mg every 6 hours. Push the fluids. Call either [facility] clinic and/or [facility] clinic on Saturday to make an appointment to be seen by a urologist for reevaluation and treatment. Return to ED if you develop any new or worsening symptoms as discussed. Do not drive this evening since receiving a sedative medication. Do not drive while taking any narcotics. [facility]: [phone] [facility]: [phone]
--- NOTE | 2018-01-10 19:03 | CR ---
Abdomen: Supine and upright views of the abdomen were obtained. Scattered gas within colon is seen which appears within normal limits. Calcification is seen next to the spine on the left side. Difficult to exclude an obstructing ureteral stone which measures about 4 mm. Other calcifications within the pelvis are likely due to phleboliths. Surgical clips are seen from prior cholecystectomy. Bony structures appear within normal limits for the patient's age. No free air is seen. Impression: 1. 4 mm calcification next to the spine on the left side. Difficult to exclude an obstructive ureteral stone and please correlate with patient's symptoms. 2. Other incidental findings. Diagnostic code #3
[2018-01-10] MEDS ORDERED: Ketorolac 30 MG/ML SDV IVPUSH ONE (19:28)
--- NOTE | 2018-01-10 20:20 | CT ---
CT abdomen and pelvis Technique: Multiple axial sections were obtained from above the kidneys inferiorly through the pubic symphysis. Intravenous and oral contrast not utilized. Study has been performed as a ureteral stone protocol. Comparison: Previous abdominal x-ray performed earlier on the same day (6:30 PM). Calcification that was seen on previous plain film study correlates to an obstructing stone which on CT exam measures about 6 mm. This is located at the left UPJ. This causes mild inflammatory change in this area as well as swelling of the left kidney. More distal portions of the ureters show no dilatation. No additional ureteral stone is seen. Very small 1-2 mm stone is noted within the lower right kidney. No other abnormal calcifications are seen within the kidneys. Visualized posterior lung bases are clear. Noncontrast appearance of the lower liver and spleen appear within normal limits. Surgical clips are seen from prior cholecystectomy. Adrenal glands show no nodule. Pancreas is within normal limits. Aorta shows no aneurysmal dilatation. No retroperitoneal adenopathy or mesenteric abnormalities are seen. Appendix is seen which appears normal. No pelvic mass or adenopathy is seen. No bladder calculi are seen. Small calcifications are seen within the left side of the uterus which are felt to be incidental. Diverticuli are seen within the sigmoid and descending colon. Bone window settings were reviewed which shows spondylolisthesis of L5-S1 as well as disc space narrowing and vacuum phenomena. Spondylolisthesis is due to degenerative apophyseal change. Apophyseal joints at this level also show vacuum phenomena. Disc space narrowing is also noted at T10-T11 which shows vacuum phenomena. Impression: 1. 6 mm obstructing stone at the UPJ on the left side. 2. Small 1-2 mm stone within the lower right kidney. 3. Other incidental findings as noted above. Diagnostic code #3
[2018-01-10] MEDS ORDERED: Tamsulosin 0.4 MG Cap.ER PO ONE (20:30)
== END 2018-01-10 20:50 | disposition home or self-care (01) ==
LOC: JD.ED 16:59
DX: N20.0 Calculus of kidney (principal); I10 Essential (primary) hypertension; J44.9 Chronic obstructive pulmonary disease, unspecified; K21.9 Gastro-esophageal reflux disease without esophagitis; F31.9 Bipolar disorder, unspecified; E66.9 Obesity, unspecified; Z91.040 Latex allergy status; Z88.8 Allergy status to other drugs, medicaments and biological substances; Z79.899 Other long term (current) drug therapy; Z86.19 Personal history of other infectious and parasitic diseases; Z68.41 Body mass index [BMI] 40.0-44.9, adult
CPT/HCPCS: 36415; 74019; 74176; 80053; 80306; 81001; 83690; 84443; 85025; 86140; 96361; 96374; 96375; 99285; A9270; J1170; J1885; J2405; J7040; J7050; 99284

== ENCOUNTER 2018-01-13 17:11 | Emergency (ER) | payer MEDICARE, OTHER ==
[2018-01-13 17:28] VITALS: BP 135/85
[2018-01-13] MEDS ORDERED: HYDROmorphone 1 MG/ML Syringe IVPUSH ONE (17:45)
[2018-01-13] MEDS ORDERED: Metoclopramide 10 MG/2 ML SDV IVPUSH ONE (17:45)
[2018-01-13] MEDS ORDERED: Dextrose 5%-0.9% NaCl 1,000 ML IV SCH (17:45)
--- NOTE | 2018-01-13 17:54 | EDM.PDOC ---
ED HPI GENERAL MEDICAL PROBLEM - General Chief Complaint: Genitourinary Problem Stated Complaint: POSSIBLE KIDNEY STONE Time Seen by Provider: 01/13/18 17:45 Source of Information: Reports: Patient History Limitations: Reports: No Limitations - History of Present Illness INITIAL COMMENTS - FREE TEXT/NARRATIVE: 62-year-old female presents the ED with complaints of severe pain left flank secondary to a kidney stone that was diagnosed at the Lt UPJ junction on SaturdayJanuary 10. She states she suffered all weekend with constant pain with intermitent colic. Intermittent nausea and vomiting. She feels that she is volume depleted. By Dr. Walker in the clinic who did speak to urology and felt that she should be given more time to allow the stone to try and pass. He states there is still a 70% chance the stone will pass on its own. First check this on CT. She has not no signs of blood in her urine. She's had multiple kidney stones on the same side in the past. She's had previous cholecystectomy and 1. Bowels are moving today. She has chronic low back pain for which no surgical remedy apparently is available. She is receiving steroid injections into her facet joint is unremarkable back every 3 months in [place]. Next due February 12. She is on high-dose more prone tablets usually 2 --5/ 325 milligram tablets every 6 hours. The last tablets were taken at about 8:00 this morning she's been using extra over the weekend because of the renal colic. She's been given Toradol 10 mg every 6 hours without any relief at all. She's complaining of fever and chills. It's unclear whether she has a urinary tract infection since she has a high-grade obstruction. Totally and sent over to the hospital for admission to hospital. He is currently living alone as her is out of town working. She does not feel that the kidney stone has moved as the pain is in the same place it was on Saturday. Onset: Sudden Onset Date: 01/10/18 (Seen and examined in the ED and identified a 6 mm stone with large degree of obstruction of the left kidney with a 6 mm oblong stone at the UPJ.) Duration: Day(s):, Getting Worse, Intermittent, Waxing/Waning Location: Reports: Back Quality: Reports: Ache (Left flank.), Throbbing, Other Severity: Severe (Sharp and stabbing by intermittent severe colicky pain 8 or 9 out of 10.) Improves with: Reports: Medication (Hydrocodone tablets of been helping somewhat.) Worsens with: Reports: None Context: Denies: Activity, Exercise, Lifting, Sick Contact, Trauma, Other Associated Symptoms: Reports: Fever/Chills, Loss of Appetite (Committed fever and chills.), Malaise, Nausea/Vomiting (When the pain is bad.). Denies: No Other Symptoms, Confusion, Chest Pain, Cough, cough w sputum, Diaphoresis, Headaches, Rash, Seizure, Shortness of Breath, Syncope Treatments RECOVERY AGENT: Reports: NSAIDS (Taking Toradol tablets that were prescribed to her on Saturday.) - Related Data Allergies Allergy/AdvReac Type Severity Reaction Status Date / Time latex Allergy Cannot Verified 01/13/18 17:28 Remember quetiapine [From Seroquel] Allergy Cannot Verified 01/13/18 17:28 Remember Home Meds: Home Meds Albuterol Sulfate [Proair Hfa] 2 puff INH Q4H PRN 05/16/17 [History] Budesonide/Formoterol [Symbicort 160-4.5 MCG] 2 puff INH BID 05/16/17 [History] Valsartan [Diovan] 160 mg PO DAILY 05/16/17 [History] oxyCODONE HCl/Acetaminophen [oxyCODONE-Acetaminophen 5-325] 1 tab PO Q6H PRN [History] Albuterol [Proventil Neb Soln] 1 dose NEB Q6H PRN 11/27/17 [History] Hydrocort/Neomycin/Polymyxin B [Cortisporin Otic Soln] 1 drop EARBOTH QID PRN [History] Pregabalin [Lyrica] 150 mg PO DAILY 11/27/17 [History] Vortioxetine Hydrobromide [Trintellix] 10 mg PO DAILY 11/27/17 [History] Naproxen 500 mg PO BID #20 tablet 01/10/18 [Rx] Ondansetron [Zofran ODT] 4 mg PO Q6H PRN #12 tab.dis 01/10/18 [Rx] Tamsulosin HCl [Flomax] 0.4 mg PO QAM #10 cap.er.24h 01/10/18 [Rx] HYDROmorphone [Dilaudid] 2 mg PO Q6H PRN #24 tab 01/13/18 [Rx] Metoclopramide HCl [Reglan] 5 mg PO Q6H PRN #24 tablet 01/13/18 [Rx] Past Medical History HEENT History: Reports: Glaucoma, Hard of Hearing, Impaired Vision, Other (See Below) Other HEENT History: bilateral hearing aids, glasses Cardiovascular History: Reports: Hypertension Respiratory History: Reports: Asthma, COPD, Sleep Apnea Gastrointestinal History: Reports: GERD, Hepatitis, Hiatal Hernia, Other (See Below) Other Gastrointestinal History: dysphagia, hepatitis C positive(dormint) Genitourinary History: Reports: None, Renal Calculus 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: Reports: None Musculoskeletal History: Reports: Back Pain, Chronic Neurological History: Reports: CVA Psychiatric History: Reports: Depression Endocrine/Metabolic History: Reports: Obesity/BMI 30+ Hematologic History: Reports: None Immunologic History: Reports: None Oncologic (Cancer) History: Reports: None Dermatologic History: Reports: None - Past Surgical History Head Surgeries/Procedures: Reports: None HEENT Surgical History: Reports: Tonsillectomy Cardiovascular Surgical History: Reports: None Respiratory Surgical History: Reports: None GI Surgical History: Reports: Cholecystectomy, EGD Female Surgical History: Reports: Section Endocrine Surgical History: Reports: None Neurological Surgical History: Reports: None Musculoskeletal Surgical History: Reports: None Oncologic Surgical History: Reports: None Dermatological Surgical History: Reports: None Social & Family History - Family History Family Medical History: Noncontributory Cardiac: Reports: [place] Endocrine/Metabolic: Reports: Diabetes, type II Oncologic: Reports: Breast, Cervix, Other (See Below) Other Oncologic Family History: testicular - Tobacco Use Smoking Status *Q: Never Smoker Used Tobacco, but Quit: Yes Month/Year Tobacco Last Used: 1999 Second Hand Smoke Exposure: No - Caffeine Use Caffeine Use: Reports: Coffee, Tea - Recreational Drug Use Recreational Drug Use: No - Living Situation & Occupation Living situation: Reports: Occupation: Unemployed ED ROS GENERAL - Review of Systems Review Of Systems: See Below Constitutional: Reports: Fever, Chills, Malaise, Weakness, Fatigue, Decreased Appetite, Weight Loss HEENT: Reports: No Symptoms Respiratory: Reports: Shortness of Breath Cardiovascular: Reports: Dyspnea on Exertion (Chronically). Denies: Blood Pressure Problem, Claudication, Edema, Lightheadedness, Orthopnea Endocrine: Reports: Fatigue GI/Abdominal: Reports: Constipation (Abdomen positive constipation did have a good bowel movement this morning.) : Reports: Flank Pain (Severe left flank pain for the last 4 days.), Frequency. Denies: Incontinence, Irregular Menses, Urgency, Urinary Retention Musculoskeletal: Reports: Back Pain (Chronic low back pain. Receiving steroid facet joint since her back versus surgery.) Skin: Reports: No Symptoms Neurological: Reports: Paresthesia (Intermittent numbness and tingling and pain into both but talks and posterior thighs.) Psychiatric: Reports: Anxiety, Depression Hematologic/Lymphatic: Reports: No Symptoms Immunologic: Reports: No Symptoms ED EXAM, RENAL/ - Physical Exam Exam: See Below Exam Limited By: No Limitations General Appearance: Alert, WD/WN, Moderate Distress (She feels she cannot cope at home alone. She is worried about violating her pain contract as well.) Eye Exam: Bilateral Eye: Normal Inspection Throat/Mouth: Normal Inspection, Normal Oropharynx, Other Head: Atraumatic, Normocephalic (Tongue is mildly dry but not coated) Neck: Normal Inspection, Supple, Non-Tender, Full Range of Motion. No: Carotid Bruit, Lymphadenopathy (L), Lymphadenopathy (R) Respiratory/Chest: No Respiratory Distress, Lungs Clear, Normal Breath Sounds, No Accessory Muscle Use, Decreased Breath Sounds Cardiovascular: Regular Rate, Rhythm, No Edema, No Gallop, No Murmur, No Rub GI/Abdominal: Normal Bowel Sounds, Soft, Non-Tender, No Organomegaly, Other ( Moderately obese. Abdominal girth limits ability to palpate any solid organs.) Back Exam: Normal Inspection, CVA Tenderness (L) (Moderate.), Decreased Range of Motion, Other (No surgical scars.). No: Full Range of Motion Extremities: Normal Inspection, Normal Range of Motion, Non-Tender, Pedal Edema (Mild pedal edema dorsal feet.) Neurological: Alert, Oriented, CN II-XII Intact, Normal Cognition Psychiatric: Normal Mood, Anxious, Depressed Mood, Tearful Skin Exam: Warm, Dry, Intact, Normal Color, No Rash Course - Vital Signs Last Recorded V/S: Last Vital Signs Temp 36.9 C 04/23/18 17:21 Pulse 87 01/13/18 17:21 Resp 16 01/13/18 17:21 BP 135/85 01/13/18 17:21 Pulse Ox 100 01/13/18 17:21 - Orders/Labs/Meds Orders: Active Orders 24 hr Category Date Time Status URINALYSIS W/MICROSCOPIC [UA W/MICROSCOPIC] [URIN] Stat Lab 01/13/18 18:20 Ordered Dextrose 5%-0.9% NaCl [Dextrose 5%-Normal Saline] 1,000 Med 01/13/18 17:45 Active ml IV ASDIRECTED Medication Orders Dextrose/Sodium Chloride (Dextrose 5%-Normal Saline) 1,000 mls @ 150 mls/hr IV ASDIRECTED MACO Last Admin: 01/13/18 18:06 Dose: 150 mls/hr Labs: Laboratory Tests 01/13/18 01/13/18 01/13/18 Range/Units 17:55 17:55 18:20 WBC 3.84 L (3.98-10.04) K/mm3 RBC 4.23 (3.98-5.22) M/mm3 Hgb 12.6 (11.2-15.7) gm/L Hct 37.5 (34.1-44.9) % MCV 88.7 (79.4-94.8) fl MCH 29.8 (25.6-32.2) pg MCHC 33.6 (32.2-35.5) g/dl RDW Std Deviation 42.5 (36.4-46.3) fL Plt Count 210 (182-369) K/mm3 MPV 10.2 (9.4-12.3) fl Neutrophils % (Manual) 48 (40-60) % Band Neutrophils % 0 (0-10) % Lymphocytes % (Manual) 46 H (20-40) % Atypical Lymphs % 0 % Monocytes % (Manual) 3 (2-10) % Eosinophils % (Manual) 0 L (0.7-5.8) % Basophils % (Manual) 3 H (0.1-1.2) Platelet Estimate Adequate Plt Morphology Comment Normal RBC Morph Comment Normal Sodium 139 (136-145) mEq/L Potassium 3.9 (3.5-5.1) mEq/L Chloride 105 (98-107) mEq/L Carbon Dioxide 27 (21-32) mEq/L Anion Gap 10.9 (5-15) BUN 17 (7-18) mg/dL Creatinine 0.8 (0.55-1.02) mg/dL Est Cr Clr Drug Dosing 53.71 mL/min Estimated GFR (MDRD) > 60 (>60) mL/min BUN/Creatinine Ratio 21.3 H (14-18) Glucose 124 H (74-106) mg/dL Calcium 9.6 (8.5-10.1) mg/dL Total Bilirubin 0.4 (0.2-1.0) mg/dL AST 30 (15-37) U/L ALT 40 (14-59) U/L Alkaline Phosphatase 84 (46-116) U/L C-Reactive Protein 1.2 H* (<1.0) mg/dL Total Protein 7.8 (6.4-8.2) g/dl Albumin 4.3 (3.4-5.0) g/dl Globulin 3.5 gm/dL Albumin/Globulin Ratio 1.2 (1-2) Urine Color Light yellow (Yellow) Urine Appearance Clear (Clear) Urine pH 7.0 (5.0-8.0) Ur Specific [place] 1.025 (1.005-1.030) Urine Protein Negative (Negative) Urine Glucose (UA) Negative (Negative) Urine Ketones Negative (Negative) Urine Occult Blood 1+ H (Negative) Urine Nitrite Negative (Negative) Urine Bilirubin Negative (Negative) Urine Urobilinogen 0.2 (0.2-1.0) Ur Leukocyte Esterase Negative (Negative) Urine RBC 5-10 H (0-5) /hpf Urine WBC 0-5 (0-5) /hpf Ur Epithelial Cells 5-10 H (0-5) /hpf Urine Bacteria Rare (FEW) /hpf Urine Mucus Not seen (FEW) /hpf Meds: Medications Generic Name Dose Route Start Last Admin Trade Name Freq PRN Reason Stop Dose Admin Dextrose/Sodium Chloride 1,000 mls @ 150 mls/hr 01/13/18 17:45 01/13/18 18:06 Dextrose 5%-Normal Saline IV 150 mls/hr ASDIRECTED MACO Administration Discontinued Medications Generic Name Dose Route Start Last Admin Trade Name Freq PRN Reason Stop Dose Admin Hydromorphone HCl 1 mg 01/13/18 17:45 01/13/18 18:26 Dilaudid IVPUSH 01/13/18 17:46 Not Given ONETIME ONE Hydromorphone HCl Confirm 01/13/18 18:01 01/13/18 18:26 Dilaudid Administered 01/13/18 18:02 Not Given Dose 1 mg .ROUTE .STK-MED ONE Hydromorphone HCl 1 mg 01/13/18 18:24 01/13/18 18:20 Dilaudid IVPUSH 01/13/18 18:25 1 mg ONETIME ONE Administration Metoclopramide HCl 7.5 mg 01/13/18 17:45 01/13/18 18:06 Reglan IVPUSH 01/13/18 17:46 7.5 mg ONETIME ONE Administration - Radiology Interpretation Free Text/Narrative:: 62-year-old female presents to the ED primarily due to kidney stone at the left UPJ that was diagnosed 3 days ago. She is fighting the pain is constant with intermittent strong colicky pain that causes nausea and vomiting. She feels she is getting more dehydrated. Pain is very poorly controlled and she's run out of her normal hydrocodone tablets that she takes for her low back pain with the last tablet being taken at 8:00 this morning. She is very worried about violating her pain contract. She has a pink-red tract due to chronic degenerative disc disease and osteophytic changes in her lower back. She states she is dizzy lightheaded when she stands up and has not eaten much at all for the last 3 days. Toradol to be taken 10 mg every 6 hours which has not been helping the pain at all. She was seen by Dr. Walker at the clinic and it was suggested that she be admitted to the hospital for intravenous fluids and pain management. She therefore came to the hospital in this regard. Plan IV normal saline at 150 mils per hour. Will give her Dilaudid 1 mg IV and Reglan 7.5 mg IV for pain relief and nausea relief. I will review the CT scan myself. - Re-Assessments/Exams Free Text/Narrative Re-Assessment/Exam: 01/13/18 18:[address] scan done on Saturday reveals an oval stone at the UPJ released about 2 cm inferior to the UPJ. This is a high-grade obstruction with a large amount of perinephric stranding and moderate hydronephrosis. Landed urinalysis will be collected. Dr. Walker did routine lab work and will send it over when it is completed. 01/13/18 18:10: It's unclear if any labs were a factor on at the clinic certainly Dr. Walker did not send any of results over. Therefore repeat urinalysis repeat CBC CMP and CRP will be done. Blood cultures will be withheld at this time as she is afebrile.White count is 3.84 with normal differential 40 % neutrophils and no bands. Hemoglobin is 12.6 with hematocrit of 37.5. Platelet count is 210,000. Chemistry shows a sodium of 139 potassium of 3.9. Chloride is 105 with a bicarbonate 27. Anion gap is 10.9. BUNs 17. Creatinine is 0.8. Glucose is 124. Calcium is 9.6. Liver function normal C-reactive protein is 1.2. Urinalysis shows 1+ occult blood on the dip 5-10 RBCs per high- power field on the micro-and 5-10 epithelial cells.. 01/13/18 19:54 discussed at length with the patient that she has not volume depleted and has no signs or symptoms of an infective process at this time. It' s mostly pain management and nausea management. Therefore the hospitalist did not feel that she had any indications other than pain managements to be admitted to the hospital. She felt this could be done at home. Therefore she is willing to try things at home. Apparently her is off the next few days and will be around to help her out. Advised her that she does need to make an appointment to see a urologist probably within the next week. If she does not pass the stone and she is going to need lithotripsy to remedy the situation. In the meantime I'm going to give her hydromorphone 2 mg tablets to be taken every 6 hours as needed for pain relief so that she doesn't have to overdo her Percocet tablets. Also her antinausea will be changed to Reglan 5 mg every 6 hours as needed. Departure - Departure Time of Disposition: 19:56 Disposition: Home, Self-Care 01 Condition: Fair Clinical Impression: Renal colic on left side - Discharge Information Prescriptions: HYDROmorphone [Dilaudid] 2 mg PO Q6H PRN #24 tab PRN Reason: Renal colic Metoclopramide HCl [Reglan] 5 mg PO Q6H PRN #24 tablet PRN Reason: relief of nausea Referrals: Martin Walker MD [Primary Care Provider] - Forms: ED Department Discharge Additional Instructions: Evaluation the emergency room today in regards to persistent pain left flank and upper back secondary to a 6 mm stone wedged in the left upper ureter. This stone is oval-shaped on CT scan and does have a chance of passing on its own over the next week or so When it starts to move it will start to hurt and this is when he would need to take your hydromorphone 2 mg tablet. I would suggest taking a Reglan 5 mg tablet and then the hydromorphone 2 mg tablet at the same time for relief of nausea and pain. May continue to use your Percocet tabs throughout the day as usual do. Pain contract. The hydromorphone tablets are just within the renal colic starts to act up. Continue the tamsulosin as previously prescribed. Ondansetron can be discontinued since you're not finding it helpful.Also the Toradol/Naproxen is to be discontinued. Return to medical care if nausea vomiting and/or pain or not controlled well with the above regimen. I would strongly urge you to make an appointment with a urologist in about a week's time. If the stone is not passed within a week then a right likely is going to require intervention to break it up and remove it. - My Orders Last 24 Hours: My Active Orders 01/13/18 17:45 Dextrose 5%-0.9% NaCl [Dextrose 5%-Normal Saline] 1,000 ml IV ASDIRECTED 01/13/18 18:20 URINALYSIS W/MICROSCOPIC [UA W/MICROSCOPIC] [URIN] Stat - Assessment/Plan Last 24 Hours: My Active Orders 01/13/18 17:45 Dextrose 5%-0.9% NaCl [Dextrose 5%-Normal Saline] 1,000 ml IV ASDIRECTED 01/13/18 18:20 URINALYSIS W/MICROSCOPIC [UA W/MICROSCOPIC] [URIN] Stat
[2018-01-13] MEDS: HYDROmorphone 0.5 MG/0.5 ML SYRINGE ONE ×3 (18:17→18:26)
[2018-01-13] MEDS ORDERED: HYDROmorphone 0.5 MG/0.5 ML SYRINGE IVPUSH ONE (18:24)
== END 2018-01-13 20:07 | disposition home or self-care (01) ==
LOC: JD.ED 17:11
DX: N13.2 Hydronephrosis with renal and ureteral calculous obstruction (principal); I10 Essential (primary) hypertension; E66.9 Obesity, unspecified; J44.9 Chronic obstructive pulmonary disease, unspecified; Z91.040 Latex allergy status; Z86.73 Personal history of transient ischemic attack (TIA), and cerebral infarction without residual deficits; Z88.8 Allergy status to other drugs, medicaments and biological substances; Z79.899 Other long term (current) drug therapy; Z68.41 Body mass index [BMI] 40.0-44.9, adult
CPT/HCPCS: 36415; 80053; 81001; 85025; 86140; 96361; 96374; 96375; 99284; J1170; J2765; J7042

== ENCOUNTER 2018-05-10 12:20 | Emergency (ER) | payer MEDICARE, OTHER ==
[2018-05-10] MEDS ORDERED: Orphenadrine 100 MG Tab.ER PO STA (13:42)
--- NOTE | 2018-05-10 14:45 | EDM.PDOC ---
ED HPI GENERAL MEDICAL PROBLEM - General Chief Complaint: Chest Pain Stated Complaint: CHEST PAIN Time Seen by Provider: 05/10/18 12:25 Source of Information: Reports: Patient History Limitations: Reports: No Limitations - History of Present Illness INITIAL COMMENTS - FREE TEXT/NARRATIVE: The patient states that she developed a sharp pain, felt just left of her sternum (she points to the area with one finger), along with diaphoresis, and "not feeling good" around 11:00 to 11:30 this morning. The pain was not modifiable. She did not volunteer it, but when asked, she acknowledges that she was short of breath and felt clammy and lightheaded, although did not have nausea. She also reports having had a headache for 2 days. She states that she checked her blood pressure, and found it to be elevated. No prior similar symptoms. The patient's PCP is Dr. Walker. Chest Pain Score (Numeric/FACES): 7 - Related Data Allergies Allergy/AdvReac Type Severity Reaction Status Date / Time adhesive tape Allergy Rash Verified 05/10/18 12:35 latex Allergy Cannot Verified 05/10/18 12:35 Remember quetiapine [From Seroquel] Allergy Cannot Verified 05/10/18 12:35 Remember Home Meds: Home Meds Albuterol Sulfate [Proair Hfa] 2 puff INH Q4H PRN 05/16/17 [History] Budesonide/Formoterol [Symbicort 160-4.5 MCG] 2 puff INH BID 05/16/17 [History] Valsartan [Diovan] 160 mg PO DAILY 05/16/17 [History] oxyCODONE HCl/Acetaminophen [oxyCODONE-Acetaminophen 5-325] 1 tab PO Q6H PRN [History] Albuterol [Proventil Neb Soln] 1 dose NEB Q6H PRN 11/27/17 [History] Hydrocort/Neomycin/Polymyxin B [Cortisporin Otic Soln] 1 drop EARBOTH QID PRN [History] Pregabalin [Lyrica] 150 mg PO DAILY 11/27/17 [History] Vortioxetine Hydrobromide [Trintellix] 10 mg PO DAILY 11/27/17 [History] Naproxen 500 mg PO BID #20 tablet 01/10/18 [Rx] Orphenadrine [Norflex] 1 tab PO Q12H PRN #14 tab.er 05/10/18 [Rx] Promethazine [Phenergan] 12.5 mg PO Q6H PRN 05/10/18 [History] Past Medical History HEENT History: Reports: Cataract, Glaucoma, Hard of Hearing, Impaired Vision, Other (See Below) (wears glasses, hearing aids) Cardiovascular History: Reports: Hypertension Respiratory History: Reports: Asthma, COPD, Sleep Apnea (no treatment) Gastrointestinal History: Reports: GERD, Hiatal Hernia Genitourinary History: Reports: Renal Calculus Musculoskeletal History: Reports: Back Pain, Chronic, Osteoarthritis Neurological History: Reports: CVA (right hemiparesis) Psychiatric History: Reports: Depression (untreated) Endocrine/Metabolic History: Reports: Obesity/BMI 30+ - Infectious Disease History Infectious Disease History: Reports: Chicken Pox, Hepatitis C (treated), Measles , Mumps - Past Surgical History HEENT Surgical History: Reports: Oral Surgery (wisdom teeth extraction), Tonsillectomy GI Surgical History: Reports: Cholecystectomy (2015), EGD (January 2018) Female Surgical History: Reports: Section (x 2) Musculoskeletal Surgical History: Reports: Carpal Tunnel (right only) Social & Family History - Family History Family Medical History: Noncontributory Cardiac: Reports: [place] Endocrine/Metabolic: Reports: Diabetes, type II Oncologic: Reports: Breast, Cervix, Other (See Below) Other Oncologic Family History: testicular - Tobacco Use Smoking Status *Q: Former Smoker Years of Tobacco use: 34 Packs/Tins Daily: 0.1 Month/Year Tobacco Last Used: Quit 2007 Second Hand Smoke Exposure: No - Caffeine Use Caffeine Use: Reports: Coffee - Alcohol Use Alcohol Use History: Yes Alcohol Use Frequency: Socially - Recreational Drug Use Recreational Drug Use: No - Living Situation & Occupation Living situation: Reports: , with Spouse Occupation: Disabled ED ROS GENERAL - Review of Systems Review Of Systems: ROS reveals no pertinent complaints other than HPI. ED EXAM, GENERAL - Physical Exam Exam: See Below Exam Limited By: No Limitations General Appearance: Alert, WD/WN, No Apparent Distress Eye Exam: Bilateral Eye: EOMI, Normal Inspection Ears: Normal External Exam, Hearing Grossly Normal Nose: Normal Inspection, No Blood Throat/Mouth: Normal Inspection, Normal Lips, Normal Voice, No Airway Compromise Head: Atraumatic, Normocephalic Neck: Normal Inspection, Full Range of Motion Respiratory/Chest: No Respiratory Distress, Lungs Clear, Normal Breath Sounds, No Accessory Muscle Use, Other (Reproducible tenderness to palpation of the patient's left pectoralis muscle, just left of the sternum. Pain is also reproduced with flexing the muscle, or crossing her left upper extremity across her chest.) Cardiovascular: Normal Peripheral Pulses, Regular Rate, Rhythm, No Gallop, No JVD, No Murmur, No Rub Peripheral Pulses: 4+: Radial (L), Radial (R) GI/Abdominal: Normal Bowel Sounds, Soft, Non-Tender, No Organomegaly, No Distention, No Abnormal Bruit, No Mass, Other (Obese) (Female) Exam: Deferred Rectal (Female) Exam: Deferred Back Exam: Normal Inspection, Full Range of Motion, NT Extremities: Normal Inspection, Normal Range of Motion, No Pedal Edema, Normal Capillary Refill Neurological: Alert, Oriented, Normal Cognition, No Motor/Sensory Deficits Psychiatric: Normal Affect Skin Exam: Warm, Dry, Intact, Normal Color, No Rash EKG INTERPRETATION EKG Date: 05/10/18 Time: 12:38 Rhythm: NSR Rate (Beats/Min): 72 [place]: Normal P-Wave: Present QRS: Normal ST-T: Normal QT: Normal Comparison: No Change (11/29/2017) Course - Vital Signs Last Recorded V/S: Last Vital Signs Temp 37.1 C 05/10/18 15:20 Pulse 70 05/10/18 15:20 Resp 16 05/10/18 15:20 BP 120/58 L 05/10/18 15:20 Pulse Ox 98 05/10/18 15:20 - Orders/Labs/Meds Orders: Active Orders 24 hr Category Date Time Status EKG 12 Lead [EKG Documentation Completion] [RC] STAT Care 05/10/18 12:40 Active Chest 2V [CR] Stat Exams 05/10/18 13:40 Taken Labs: Laboratory Tests 05/10/18 05/10/18 05/10/18 Range/Units 12:40 12:40 12:40 WBC 3.53 L (3.98-10.04) K/mm3 RBC 4.50 (3.98-5.22) M/mm3 Hgb 13.5 (11.2-15.7) gm/L Hct 39.6 (34.1-44.9) % MCV 88.0 (79.4-94.8) fl MCH 30.0 (25.6-32.2) pg MCHC 34.1 (32.2-35.5) g/dl RDW Std Deviation 41.9 (36.4-46.3) fL Plt Count 237 (182-369) K/mm3 MPV 10.1 (9.4-12.3) fl Neutrophils % (Manual) 35 L (40-60) % Band Neutrophils % 0 (0-10) % Lymphocytes % (Manual) 59 H (20-40) % Atypical Lymphs % 0 % Monocytes % (Manual) 6 (2-10) % Eosinophils % (Manual) 0 L (0.7-5.8) % Basophils % (Manual) 0 L (0.1-1.2) Platelet Estimate Adequate RBC Morph Comment Normal D-Dimer, Quantitative 0.41 (0.19-0.50) mg/L Sodium 142 (136-145) mEq/L Potassium 3.6 (3.5-5.1) mEq/L Chloride 108 H (98-107) mEq/L Carbon Dioxide 22 (21-32) mEq/L Anion Gap 15.6 H (5-15) BUN 12 (7-18) mg/dL Creatinine 0.7 (0.55-1.02) mg/dL Est Cr Clr Drug Dosing 61.39 mL/min Estimated GFR (MDRD) > 60 (>60) mL/min BUN/Creatinine Ratio 17.1 (14-18) Glucose 135 H (74-106) mg/dL Calcium 9.3 (8.5-10.1) mg/dL Total Bilirubin 0.4 (0.2-1.0) mg/dL AST 28 (15-37) U/L ALT 45 (14-59) U/L Alkaline Phosphatase 89 (46-116) U/L Troponin I < 0.017 (0.00-0.056) ng/mL NT-Pro-B Natriuret Pep (0-125) pg/mL Total Protein 7.4 (6.4-8.2) g/dl Albumin 3.6 (3.4-5.0) g/dl Globulin 3.8 gm/dL Albumin/Globulin Ratio 1.0 (1-2) 05/10/18 Range/Units 12:40 WBC (3.98-10.04) K/mm3 RBC (3.98-5.22) M/mm3 Hgb (11.2-15.7) gm/L Hct (34.1-44.9) % MCV (79.4-94.8) fl MCH (25.6-32.2) pg MCHC (32.2-35.5) g/dl RDW Std Deviation (36.4-46.3) fL Plt Count (182-369) K/mm3 MPV (9.4-12.3) fl Neutrophils % (Manual) (40-60) % Band Neutrophils % (0-10) % Lymphocytes % (Manual) (20-40) % Atypical Lymphs % % Monocytes % (Manual) (2-10) % Eosinophils % (Manual) (0.7-5.8) % Basophils % (Manual) (0.1-1.2) Platelet Estimate RBC Morph Comment D-Dimer, Quantitative (0.19-0.50) mg/L Sodium (136-145) mEq/L Potassium (3.5-5.1) mEq/L Chloride (98-107) mEq/L Carbon Dioxide (21-32) mEq/L Anion Gap (5-15) BUN (7-18) mg/dL Creatinine (0.55-1.02) mg/dL Est Cr Clr Drug Dosing mL/min Estimated GFR (MDRD) (>60) mL/min BUN/Creatinine Ratio (14-18) Glucose (74-106) mg/dL Calcium (8.5-10.1) mg/dL Total Bilirubin (0.2-1.0) mg/dL AST (15-37) U/L ALT (14-59) U/L Alkaline Phosphatase (46-116) U/L Troponin I (0.00-0.056) ng/mL NT-Pro-B Natriuret Pep 108 (0-125) pg/mL Total Protein (6.4-8.2) g/dl Albumin (3.4-5.0) g/dl Globulin gm/dL Albumin/Globulin Ratio (1-2) Meds: Medications Discontinued Medications Generic Name Dose Route Start Last Admin Trade Name Freq PRN Reason Stop Dose Admin Orphenadrine Citrate 100 mg 05/10/18 13:42 05/10/18 13:46 Norflex PO 05/10/18 13:43 100 mg ONETIME STA Administration - Re-Assessments/Exams Free Text/Narrative Re-Assessment/Exam: 05/10/18 14:02 2-view chest radiograph appears to be grossly normal. Cardiac silhouette is within normal limits. No pulmonary vascular congestion. No pleural effusions. No focal infiltrate. No pneumothorax. Formal read per the Radiologist pending. 05/10/18 15:01 Test results discussed with the patient and her . As above, the patient appears to have a muscle spasm, likely of her left pectoralis muscle. She has been started on Norflex. I will discharge her home with a seven-day prescription. I would also like her to take [id number] ibuprofen. The patient states that she'll be following up with Dr. Walker this coming week - I would like the patient to discuss her mild hyperglycemia. Departure - Departure Time of Disposition: 15:02 Disposition: Home, Self-Care 01 Condition: Good Clinical Impression: Musculoskeletal chest pain, Hyperglycemia - Discharge Information *PRESCRIPTION DRUG MONITORING PROGRAM REVIEWED*: Not Applicable *COPY OF PRESCRIPTION DRUG MONITORING REPORT IN PATIENT NEO: Not Applicable Prescriptions: Orphenadrine [Norflex] 1 tab PO Q12H PRN #14 tab.er PRN Reason: Muscle Spasm Instructions: Nonspecific Chest Pain, Musculoskeletal Pain Referrals: Martin Walker MD [Primary Care Provider] - Forms: ED Department Discharge Additional Instructions: You were seen in the emergency room for left-sided chest pain. Workup in the ER included blood work, a chest x-ray, and an ECG. Your entire workup was unremarkable. You have not suffered a heart attack. You do not have pneumonia. You do not have a collapsed lung. You do not to blood clot in your lung. Based on your history and physical examination, or chest pain is due to a spasm of a chest muscle. You have been started on the muscle relaxant Norflex. A prescription for Norflex has been sent to the [facility], [facility]. Take one tablet every 12 hours, starting tomorrow morning, Saturday , 05/11/2018, as prescribed. We also recommend that you take [id number] ibuprofen, 2-3 tablets (400- 600 mg) every 8 hours, with food, as needed for pain. Your blood sugar was found to be mildly elevated at 135. We recommend that you discuss this with Dr. Walker when you see him this coming week. If any other problems, please do not hesitate to return to the ER. - My Orders Last 24 Hours: My Active Orders 05/10/18 12:40 EKG 12 Lead [EKG Documentation Completion] [RC] STAT 05/10/18 13:40 Chest 2V [CR] Stat - Assessment/Plan Last 24 Hours: My Active Orders 05/10/18 12:40 EKG 12 Lead [EKG Documentation Completion] [RC] STAT 05/10/18 13:40 Chest 2V [CR] Stat
[2018-05-10 15:21] VITALS: BP 120/58
--- NOTE | 2018-05-14 08:24 | CR ---
Chest: Two views of the chest were obtained. Comparison: Previous chest x-ray of 11/29/17. Heart size is normal. Tortuous thoracic aorta is seen. Lungs are clear without acute parenchymal change. Surgical clips are seen from prior cholecystectomy. Slight degenerative change is seen within the spine. Minimal endplate osteophytes are seen with minimal scoliosis. Impression: 1. Incidental findings. Nothing acute is appreciated on two-view chest x-ray. Diagnostic code #2
== END 2018-05-10 15:20 | disposition home or self-care (01) ==
LOC: JD.ED 12:20
DX: R07.9 Chest pain, unspecified (principal); R73.9 Hyperglycemia, unspecified; E66.9 Obesity, unspecified; I10 Essential (primary) hypertension; Z79.899 Other long term (current) drug therapy; Z91.09 Other allergy status, other than to drugs and biological substances; Z91.040 Latex allergy status; Z88.8 Allergy status to other drugs, medicaments and biological substances; Z87.891 Personal history of nicotine dependence
CPT/HCPCS: 36415; 71046; 80053; 83880; 84484; 85007; 85027; 85379; 93005; 99285; A9270

== ENCOUNTER 2019-10-09 17:44 | Emergency (ER) | payer MEDICARE, MEDICAID ==
[2019-10-09 18:05] VITALS: BP 162/93; PULSE 67
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
--- NOTE | 2019-10-10 07:31 | CR ---
Left foot: Four views of the left foot were obtained. Comparison: No prior foot exam. Degenerative change is noted at the tarsometatarsal joints mostly within the second third and fourth digits. Joint space narrowing also noted off the distal cuboid bone. No acute fracture, dislocation or other bony abnormality is seen. Impression: 1. Degenerative change and plantar spur. 2. Nothing acute is appreciated on left foot exam. Diagnostic code #2 Study was dictated in [place] Standard Time
== END 2019-10-09 19:22 | disposition home or self-care (01) ==
LOC: JD.ED 17:44
DX: S93.505A Unspecified sprain of left lesser toe(s), initial encounter (principal); I10 Essential (primary) hypertension; J44.9 Chronic obstructive pulmonary disease, unspecified; I25.2 Old myocardial infarction; F32.9 Major depressive disorder, single episode, unspecified; Z86.73 Personal history of transient ischemic attack (TIA), and cerebral infarction without residual deficits; Z79.899 Other long term (current) drug therapy; Z91.09 Other allergy status, other than to drugs and biological substances; Z91.040 Latex allergy status; Z91.018 Allergy to other foods; W22.8XXA Striking against or struck by other objects, initial encounter
CPT/HCPCS: 73630-26-LT; 73630-LT; 99282; 99283-25

== ENCOUNTER 2019-10-18 14:14 | Emergency (ER) | payer MEDICARE, MEDICAID ==
[2019-10-18 14:30] VITALS: BP 138/67; PULSE 104
[2019-10-18] MEDS ORDERED: Albuterol/Ipratropium 3.0-0.5 MG/3 ML Neb Soln NEB ONE (15:01)
--- NOTE | 2019-10-18 15:16 | EDM.PDOC ---
ED HPI GENERAL MEDICAL PROBLEM - General Chief Complaint: Respiratory Problem Stated Complaint: ASTHMA Time Seen by Provider: 10/18/19 14:56 Source of Information: Reports: Patient History Limitations: Reports: No Limitations - History of Present Illness INITIAL COMMENTS - FREE TEXT/NARRATIVE: Patient's unfortunate 64-year-old obese female who presents emergency Department today with complaint of cough and wheezing. Patient reports that symptoms started yesterday with cough and fever chills body aches and wheezing. Patient does have a history of asthma feels similar to previous asthma exacerbations. No nausea no vomiting no chest pain no shortness of breath - Related Data Allergies Allergy/AdvReac Type Severity Reaction Status Date / Time adhesive tape Allergy Rash; Verified 10/18/19 14:30 Itching latex Allergy Chest Verified 10/18/19 14:30 Tightness, Dyspnea pineapple Allergy Anaphylactic Verified 10/18/19 14:30 Shock quetiapine [From Seroquel] AdvReac Seizures Verified 10/18/19 14:30 Home Meds: Home Meds Albuterol Sulfate [Proair Hfa] 2 puff INH Q4H PRN 05/16/17 [History] Budesonide/Formoterol [Symbicort 160-4.5 MCG] 2 puff INH BID 05/16/17 [History] oxyCODONE HCl/Acetaminophen [oxyCODONE-Acetaminophen 5-325] 1 tab PO Q12HR PRN 05/16/17 [History] Albuterol [Proventil Neb Soln] 1 dose NEB Q6H PRN 11/27/17 [History] Promethazine [Phenergan] 12.5 mg PO Q6H PRN 05/10/18 [History] Fluticasone Propionate [Flonase] 1 spray NASBOTH BID 08/28/18 [History] Ibuprofen 800 mg PO TID 08/28/18 [History] amLODIPine Besylate [Amlodipine Besylate] 5 mg PO DAILY 08/28/18 [History] Omeprazole 20 mg PO DAILY 04/02/19 [History] SUMAtriptan Succinate [Imitrex] 100 mg PO Q2HR PRN 04/02/19 [History] Albuterol Sulfate 2.5 mg IH Q4HR #60 ml 08/07/19 [Rx] Azithromycin [Zithromax] 250 mg PO ASDIRECTED #6 tab 08/07/19 [Rx] predniSONE [Prednisone] 50 mg PO DAILY #5 tablet 08/07/19 [Rx] Oseltamivir [Tamiflu] 75 mg PO BID #10 cap 10/18/19 [Rx] predniSONE [Prednisone] 50 mg PO DAILY #5 tablet 10/18/19 [Rx] Past Medical History HEENT History: Reports: Cataract, Glaucoma, Hard of Hearing, Impaired Vision Other HEENT History: bilateral hearing aids, glasses Cardiovascular History: Reports: Hypertension, [place] Respiratory History: Reports: COPD Gastrointestinal History: Reports: Other (See Below) Other Gastrointestinal History: esophagitis Genitourinary History: Reports: Renal Calculus, Other (See Below) AERIAL LINEMAN History: Reports: None Musculoskeletal History: Reports: Osteoarthritis, Other (See Below) Other Musculoskeletal History: shoulder pain, back pain Neurological History: Reports: CVA, Migraines, TIA Psychiatric History: Reports: Depression, Mood Swings Endocrine/Metabolic History: Reports: None Hematologic History: Reports: None Immunologic History: Reports: None Oncologic (Cancer) History: Reports: None Dermatologic History: Reports: None - Infectious Disease History Infectious Disease History: Reports: Chicken Pox, Hepatitis C, Measles, Mumps - Past Surgical History Head Surgeries/Procedures: Reports: None HEENT Surgical History: Reports: Tonsillectomy Cardiovascular Surgical History: Reports: None Respiratory Surgical History: Reports: None GI Surgical History: Reports: Cholecystectomy, EGD Female Surgical History: Reports: Section, Cystoscopy Endocrine Surgical History: Reports: None Neurological Surgical History: Reports: None Musculoskeletal Surgical History: Reports: Carpal Tunnel Oncologic Surgical History: Reports: None Dermatological Surgical History: Reports: None Social & Family History - Family History Family Medical History: Noncontributory Cardiac: Reports: [place], [place] Endocrine/Metabolic: Reports: Diabetes, type II Oncologic: Reports: Breast, Cervix, Other (See Below) Other Oncologic Family History: testicular - Tobacco Use Smoking Status *Q: Former Smoker Used Tobacco, but Quit: Yes Month/Year Tobacco Last Used: 20 years ago - Caffeine Use Caffeine Use: Reports: None - Recreational Drug Use Recreational Drug Use: No - Living Situation & Occupation Living situation: Reports: , with Spouse Occupation: Disabled ED ROS GENERAL - Review of Systems Review Of Systems: See Below Constitutional: Reports: Fever, Malaise HEENT: Reports: Rhinitis, Sinus Problem Respiratory: Reports: Wheezing, Cough ED EXAM, GENERAL - Physical Exam Exam: See Below Exam Limited By: No Limitations General Appearance: Alert, WD/WN, Mild Distress, Obese Ears: Normal External Exam, Normal Canal, Hearing Grossly Normal, Normal TMs Nose: Normal Inspection, Normal Mucosa, No Blood Throat/Mouth: Normal Inspection, Normal Lips, Normal Teeth, Normal Gums, Normal Oropharynx, Normal Voice, No Airway Compromise Head: Atraumatic, Normocephalic Neck: Normal Inspection Respiratory/Chest: No Respiratory Distress, Wheezing (Mild sparse end expiratory ) Cardiovascular: Normal Peripheral Pulses, Regular Rate, Rhythm, No Edema, No Gallop, No JVD, No Murmur, No Rub GI/Abdominal: Normal Bowel Sounds, Soft, Non-Tender, No Organomegaly, No Distention, No Abnormal Bruit, No Mass Back Exam: Normal Inspection, Full Range of Motion, NT Extremities: Normal Inspection, Normal Range of Motion, Non-Tender, Normal Capillary Refill, No Pedal Edema Neurological: Alert Skin Exam: Warm, Dry Course - Vital Signs Last Recorded V/S: Last Vital Signs Temp 99.1 F 10/18/19 14:28 Pulse 104 H 10/18/19 14:28 Resp 16 10/18/19 14:28 BP 138/67 10/18/19 14:28 Pulse Ox 95 10/18/19 15:01 - Orders/Labs/Meds Orders: Active Orders 24 hr Category Date Time Status RT Aerosol Therapy [RC] ASDIRECTED Care 10/18/19 15:01 Active Chest 2V [CR] Stat Exams 10/18/19 15:01 Taken methylPREDNISolone Sod Succ [Solu-MEDROL] Med 10/18/19 15:55 Once 125 mg IM ONETIME ONE Meds: Medications Discontinued Medications Generic Name Dose Route Start Last Admin Trade Name Freq PRN Reason Stop Dose Admin Albuterol/Ipratropium 6 ml 10/18/19 15:01 10/18/19 15:09 Duoneb 3.0-0.5 Mg/3 Ml NEB 10/18/19 15:02 3 ml ONETIME ONE Administration - Re-Assessments/Exams Free Text/Narrative Re-Assessment/Exam: 10/18/19 15:56 Chest x-ray interpreted by me NAD Departure - Departure Time of Disposition: 15:56 Disposition: Home, Self-Care 01 Clinical Impression: Acute asthma, Influenza - Discharge Information Prescriptions: Oseltamivir [Tamiflu] 75 mg PO BID #10 cap predniSONE [Prednisone] 50 mg PO DAILY #5 tablet Instructions: Influenza, Adult, [id number] Referrals: Martin Walker MD [Primary Care Provider] - Forms: ED Department Discharge Additional Instructions: Home, rest, use your inhaler hours for 24 hours while awake then as needed, Tylenol for fever or pain, return as needed for worsening condition Sepsis Event Note - Evaluation Sepsis Screening Result: No Definite Risk - Focused Exam Vital Signs: Vital Signs Temp Pulse Resp BP Pulse Ox Pulse Ox 10/18/19 15:01 95 10/18/19 14:28 99.1 F 104 H 16 138/67 94 L Date Exam was Performed: 10/18/19 Time Exam was Performed: 15:56 - My Orders Last 24 Hours: My Active Orders 10/18/19 15:01 RT Aerosol Therapy [RC] ASDIRECTED Chest 2V [CR] Stat 10/18/19 15:55 methylPREDNISolone Sod Succ [Solu-MEDROL] 125 mg IM ONETIME ONE - Assessment/Plan Last 24 Hours: My Active Orders 10/18/19 15:01 RT Aerosol Therapy [RC] ASDIRECTED Chest 2V [CR] Stat 10/18/19 15:55 methylPREDNISolone Sod Succ [Solu-MEDROL] 125 mg IM ONETIME ONE
[2019-10-18] MEDS ORDERED: methylPREDNISolone Sodium Succinate 125 MG/2 ML SDV IM ONE (15:55)
[2019-10-18] MEDS ORDERED: Oseltamivir 75 MG Cap PO ONE (16:00)
--- NOTE | 2019-10-18 16:00 | CR ---
Chest: 2 views of the chest were obtained. Comparison: No previous chest x-ray is available. Heart size is normal. Tortuous thoracic aorta is seen. Minimal discoid atelectasis within the left base is seen. Lungs otherwise are clear. Scattered disc space narrowing within the thoracic spine with minimal scoliosis. Surgical clips are seen from prior cholecystectomy. Impression: 1. Findings as noted above. 2. Nothing acute is appreciated. Diagnostic code #2 Study was dictated in [place] Standard Time
== END 2019-10-18 16:10 | disposition home or self-care (01) ==
LOC: JD.ED 14:14
DX: J11.1 Influenza due to unidentified influenza virus with other respiratory manifestations (principal); J45.909 Unspecified asthma, uncomplicated; I10 Essential (primary) hypertension; I25.2 Old myocardial infarction; J44.9 Chronic obstructive pulmonary disease, unspecified; F32.9 Major depressive disorder, single episode, unspecified; G43.909 Migraine, unspecified, not intractable, without status migrainosus; Z91.040 Latex allergy status; Z88.8 Allergy status to other drugs, medicaments and biological substances; Z91.018 Allergy to other foods; Z79.899 Other long term (current) drug therapy; Z86.73 Personal history of transient ischemic attack (TIA), and cerebral infarction without residual deficits; Z90.49 Acquired absence of other specified parts of digestive tract; Z87.891 Personal history of nicotine dependence
CPT/HCPCS: 71046; 87804; 94640; 96372; 99285; A9270; J2930; 99283; J7620-GY